=== PATIENT | female | born 1960 | race Caucasian/White ===

== ENCOUNTER 2023-12-31 17:31 | Inpatient (IN) | payer BC ==
--- OUTSIDE RECORDS SUMMARY | 2023-12-31 17:35 | XMS REPORT | Continuity of Care Document ---
Author Name Unknown Address [address] [facility] [address] [place] [address] [facility] Address [address] [facility] [address] [place] [address] Care Team Providers Care Guest Services Coordinator Name Role Phone Taz Fregoso MD Primary Care Physician Blossom Pastor Attending Clinician Unavailable Doctor Unassigned, [place] Attending Clinician U navailable WENDIE BRONSON Attending Clinician Unavailable Wendie Bronson MD Attending Clinician FAIZA SINGER Attending Clinician Unavailable LEONIDAS GARIBAY Attending Clinician Unavailable BARRINGTON CERON Attending Clinician Unavail able Barrington Ceron DO Attending Clinician [phone] Faiza Singer MD Attending Clinician [phone] WENDIE BRONSON Admitting Clinician Unavailable Payers Payer Name Policy Type Policy Number Effective Date Expirati on Date Source [facility] 6 [id number] 2017 00:00:00 [facility] Problems Condition Name Condition Details Condition Category Status Onset Date Resolution Date Last Treatment Date Treating Clinician Comments Source Morbid obesity with body mass index of 40.0-49.9 Morbid obesity with body mass index of 40.0-49.9 Disease Active 01-31 00:00: 00 [facility] [id number] Pain, joint, knee, right Problem [facility] [id number] Pain in left knee Problem [facility] Migraine Migraine, unspecifie d, not intractabl e, without status migrainosu s Problem [facility] Chronic sinusitis Chronic sinusitis, unspecifie d Problem [facility] [id number] Screening for skin cancer Problem [facility] Depression Depression Problem [facility] [id number] Plantar fasciitis, bilateral Problem [facility] [id number] History of squamous cell carcinoma of skin Problem [facility] [id number] Primary osteoarthr itis of right knee Problem [facility] [id number] Primary osteoarthr itis of left knee Problem [facility] [id number] Acquired hearing loss Problem [facility] [id number] Morbid (severe) obesity due to excess calories Problem [facility] [id number] Chronic fatigue Problem [facility] [id number] LYLE (obstructi ve sleep apnea) Problem [facility] [id number] Other chronic pain Problem [facility] [id number] Body mass index [BMI] 40.0-44.9, adult Problem [facility] [id number] Primary hypertensi on Problem [facility] [id number] Dependence on other enabling machines and devices Problem [facility] [id number] Primary insomnia Problem [facility] Allergies, Adverse Reactions, Alerts Allergy Name Allergy Type Status Severity Reaction(s) Onset Date Inactive Date Treating Clinician Comments Source Amoxicil geovanni-Pot Clavulan ate Propensi ty to adverse reaction s Active Unknown - See comments 01-29 00:00: 00 [facility] Merbromi n Propensi ty to adverse reaction s Active Unknown - See comments 01-29 00:00: 00 [facility] AMOXICIL GEOVANNI-POT CLAVULAN ATE DRUG Active Unknown-Cmnt 01-29 00:00: 00 [facility] MERBROMI N DRUG INGREDI Active Unknown-Cmnt 01-29 00:00: 00 [facility] [id number] Drug allergy Active [facility] codeine codeine Active [facility] amoxicil geovanni / clavulan ate amoxicil geovanni / clavulan ate Active hives [facility] Social History Social Habit Start Date Stop Date Quantity Comments Source Gender identity [facility] Sexual orientation [facility] Sex Assigned At [facility] History of Tobacco Use [facility] Alcohol intake 2023-05-22 00:00:00 2023-05-22 00:00:00 Current drinker of alcohol (finding) [facility] Tobacco use and exposure 2023-03-01 00:00:00 2023-03-01 00:00:00 Smokeless tobacco non-user [facility] Exposure to SARS-CoV-2 (event) 2023-02-18 00:00:00 2023-02-28 22:23:00 Not sure [facility] History of Social function 2020-10-28 00:00:00 2020-10-28 00:00:00 [facility] Alcohol Comment 2018-01-30 00:00:00 2018-01-30 00:00:00 Occasional Drinker [facility] Smoking Status Start Date Stop Date Source Never Smoker [facility] Medications Ordered Medication Name Filled Medication Name Start Date Stop Date Current Medication? Ordering Clinician Indication Dosage Frequency Signature (SIG) Comments Components Source Amitriptyli ne HCl 25 MG Amitriptyli ne HCl 25 MG 1-31 00:00: 00 No 1{table t_at_be dtime} QD Amitriptyl ine HCl 25 MG Amitriptyli ne HCl 25 MG Amitriptyli ne HCl 25 MG -31 00:00: 00 No 1{table t_at_be dtime} QD BUPivacaine HCl BUPivacaine HCl 2022-10 2 00:00: 00 No 4mL [facility] BUPivacaine HCl BUPivacaine HCl 2022-10 218 00:00: 00 No 4mL [facility] Kenalog (Triamcinol one) Kenalog (Triamcinol one) 2022-10 2- 00:00: 00 No 1mL [facility] Kenalog (Triamcinol one) Kenalog (Triamcinol one) 2022-10 2 00:00: 00 No 1mL [facility] BUPivacaine HCl BUPivacaine HCl 2022-10 00:00: 00 No 4mL [facility] BUPivacaine HCl BUPivacaine HCl 2022-10 2 00:00: 00 No 4mL [facility] Kenalog (Triamcinol one) Kenalog (Triamcinol one) 2022-10 2- 00:00: 00 No 1mL [facility] Kenalog (Triamcinol one) Kenalog (Triamcinol one) 2022-10 2 00:00: 00 No 1mL [facility] BUPivacaine HCl BUPivacaine HCl 2022-10 218 00:00: 00 No 4mL [facility] BUPivacaine HCl BUPivacaine HCl 2022-10 218 00:00: 00 No 4mL [facility] Kenalog (Triamcinol one) Kenalog (Triamcinol one) 2022-10 2-18 00:00: 00 No 1mL [facility] Kenalog (Triamcinol one) Kenalog (Triamcinol one) 2022-10 2-18 00:00: 00 No 1mL [facility] BUPivacaine HCl BUPivacaine HCl 2022-10 2-18 00:00: 00 No 4mL [facility] BUPivacaine HCl BUPivacaine HCl 2022-10 2-18 00:00: 00 No 4mL [facility] Kenalog (Triamcinol one) Kenalog (Triamcinol one) 2022-10 2-18 00:00: 00 No 1mL [facility] Kenalog (Triamcinol one) Kenalog (Triamcinol one) 2022-10 2-18 00:00: 00 No 1mL [facility] BUPivacaine HCl BUPivacaine HCl 2022-10 2-18 00:00: 00 No 4mL [facility] BUPivacaine HCl BUPivacaine HCl 2022-10 2-18 00:00: 00 No 4mL [facility] Kenalog (Triamcinol one) Kenalog (Triamcinol one) 2022-10 2-18 00:00: 00 No 1mL [facility] Kenalog (Triamcinol one) Kenalog (Triamcinol one) 2022-10 2-18 00:00: 00 No 1mL [facility] BUPivacaine HCl BUPivacaine HCl 2022-10 2-18 00:00: 00 No 4mL [facility] BUPivacaine HCl BUPivacaine HCl 2022-10 2-18 00:00: 00 No 4mL [facility] Kenalog (Triamcinol one) Kenalog (Triamcinol one) 2022-10 2-18 00:00: 00 No 1mL [facility] Kenalog (Triamcinol one) Kenalog (Triamcinol one) 2022-10 2-18 00:00: 00 No 1mL [facility] Escitalopra m Oxalate 5 MG Escitalopra m Oxalate 5 MG 2022-10 2-05 00:00: 00 No 1{table t} QD Escitalopr am Oxalate 5 MG Escitalopra m Oxalate 5 MG Escitalopra m Oxalate 5 MG 2022-10 2-05 00:00: 00 No 1{table t} QD Escitalopr am Oxalate 5 MG Escitalopra m Oxalate 5 MG Escitalopra m Oxalate 5 MG 2022-10 2-05 00:00: 00 No 1{table t} QD Escitalopr am Oxalate 5 MG Escitalopra m Oxalate 5 MG Escitalopra m Oxalate 5 MG 3-1 2-05 00:00: 00 No 1{table t} QD Escitalopr am Oxalate 5 MG Ozempic (1 MG/DOSE) 4 MG/3ML Ozempic (1 MG/DOSE) 4 MG/3ML 2023-0 -24 00:00: 00 No Ozempic (1 MG/DOSE) 4 MG/3ML Ozempic (0.25 or 0.5 MG/DOSE) 2 MG/3ML Ozempic (0.25 or 0.5 MG/DOSE) 2 MG/3ML 2023-0 24 00:00: 00 No Ozempic (0.25 or 0.5 MG/DOSE) 2 MG/3ML Ozempic (1 MG/DOSE) 4 MG/3ML Ozempic (1 MG/DOSE) 4 MG/3ML 2023-0 24 00:00: 00 No Ozempic (1 MG/DOSE) 4 MG/3ML Ozempic (0.25 or 0.5 MG/DOSE) 2 MG/3ML Ozempic (0.25 or 0.5 MG/DOSE) 2 MG/3ML 3-0 24 00:00: 00 No Ozempic (0.25 or 0.5 MG/DOSE) 2 MG/3ML Ozempic (1 MG/DOSE) 4 MG/3ML Ozempic (1 MG/DOSE) 4 MG/3ML 3-0 24 00:00: 00 No Ozempic (1 MG/DOSE) 4 MG/3ML Ozempic (0.25 or 0.5 MG/DOSE) 2 MG/3ML Ozempic (0.25 or 0.5 MG/DOSE) 2 MG/3ML 3-0 -24 00:00: 00 No Ozempic (0.25 or 0.5 MG/DOSE) 2 MG/3ML Ozempic (1 MG/DOSE) 4 MG/3ML Ozempic (1 MG/DOSE) 4 MG/3ML 2023-0 -24 00:00: 00 No Ozempic (1 MG/DOSE) 4 MG/3ML Ozempic (0.25 or 0.5 MG/DOSE) 2 MG/3ML Ozempic (0.25 or 0.5 MG/DOSE) 2 MG/3ML 2023-0 5-24 00:00: 00 No Ozempic (0.25 or 0.5 MG/DOSE) 2 MG/3ML Ozempic (1 MG/DOSE) 4 MG/3ML Ozempic (1 MG/DOSE) 4 MG/3ML 2023-0 5-24 00:00: 00 No Ozempic (1 MG/DOSE) 4 MG/3ML Ozempic (0.25 or 0.5 MG/DOSE) 2 MG/3ML Ozempic (0.25 or 0.5 MG/DOSE) 2 MG/3ML 2023-0 -24 00:00: 00 No Ozempic (0.25 or 0.5 MG/DOSE) 2 MG/3ML Ozempic (1 MG/DOSE) 4 MG/3ML Ozempic (1 MG/DOSE) 4 MG/3ML 2023-0 -24 00:00: 00 No Ozempic (1 MG/DOSE) 4 MG/3ML Ozempic (0.25 or 0.5 MG/DOSE) 2 MG/3ML Ozempic (0.25 or 0.5 MG/DOSE) 2 MG/3ML 2023-0 -24 00:00: 00 No Ozempic (0.25 or 0.5 MG/DOSE) 2 MG/3ML Ozempic (0.25 or 0.5 MG/DOSE) 2 MG/3ML Ozempic (0.25 or 0.5 MG/DOSE) 2 MG/3ML 2023-0 24 00:00: 00 No Ozempic (0.25 or 0.5 MG/DOSE) 2 MG/3ML Ozempic (1 MG/DOSE) 4 MG/3ML Ozempic (1 MG/DOSE) 4 MG/3ML 2023-0 -24 00:00: 00 No Ozempic (1 MG/DOSE) 4 MG/3ML Ozempic (0.25 or 0.5 MG/DOSE) 2 MG/3ML Ozempic (0.25 or 0.5 MG/DOSE) 2 MG/3ML 2023-0 5-24 00:00: 00 No Ozempic (0.25 or 0.5 MG/DOSE) 2 MG/3ML Ozempic (1 MG/DOSE) 4 MG/3ML Ozempic (1 MG/DOSE) 4 MG/3ML 2023-0 -24 00:00: 00 No Ozempic (1 MG/DOSE) 4 MG/3ML Ozempic (0.25 or 0.5 MG/DOSE) 2 MG/3ML Ozempic (0.25 or 0.5 MG/DOSE) 2 MG/3ML 2023-0 24 00:00: 00 No Ozempic (0.25 or 0.5 MG/DOSE) 2 MG/3ML Ozempic (1 MG/DOSE) 4 MG/3ML Ozempic (1 MG/DOSE) 4 MG/3ML 2023-0 24 00:00: 00 No Ozempic (1 MG/DOSE) 4 MG/3ML Ozempic (0.25 or 0.5 MG/DOSE) 2 MG/3ML Ozempic (0.25 or 0.5 MG/DOSE) 2 MG/3ML 2023-0 24 00:00: 00 No Ozempic (0.25 or 0.5 MG/DOSE) 2 MG/3ML Ozempic (1 MG/DOSE) 4 MG/3ML Ozempic (1 MG/DOSE) 4 MG/3ML 2023-0 24 00:00: 00 No Ozempic (1 MG/DOSE) 4 MG/3ML Ozempic (1 MG/DOSE) 4 MG/3ML Ozempic (1 MG/DOSE) 4 MG/3ML 2023-0 24 00:00: 00 No Ozempic (1 MG/DOSE) 4 MG/3ML Ozempic (0.25 or 0.5 MG/DOSE) 2 MG/3ML Ozempic (0.25 or 0.5 MG/DOSE) 2 MG/3ML 2023-0 24 00:00: 00 No Ozempic (0.25 or 0.5 MG/DOSE) 2 MG/3ML Ozempic (1 MG/DOSE) 4 MG/3ML Ozempic (1 MG/DOSE) 4 MG/3ML 2023-0 24 00:00: 00 No Ozempic (1 MG/DOSE) 4 MG/3ML Ozempic (0.25 or 0.5 MG/DOSE) 2 MG/3ML Ozempic (0.25 or 0.5 MG/DOSE) 2 MG/3ML 0 03-22 00:00: 00 No Ozempic (0.25 or 0.5 MG/DOSE) 2 MG/3ML Ozempic (1 MG/DOSE) 4 MG/3ML Ozempic (1 MG/DOSE) 4 MG/3ML 0 03-22 00:00: 00 No Ozempic (1 MG/DOSE) 4 MG/3ML Ozempic (0.25 or 0.5 MG/DOSE) 2 MG/3ML Ozempic (0.25 or 0.5 MG/DOSE) 2 MG/3ML 0 03-22 00:00: 00 No Ozempic (0.25 or 0.5 MG/DOSE) 2 MG/3ML Kenalog (Triamcinol one) Kenalog (Triamcinol one) 0 03-21 00:00: 00 No 1mL [facility] Kenalog (Triamcinol one) Kenalog (Triamcinol one) 0 03-21 00:00: 00 No 1mL [facility] Bupivicaine Arena Bupivicaine Arena 0 03-21 00:00: 00 No 4mL [facility] Bupivicaine Arena Bupivicaine Arena 0 03-21 00:00: 00 No 4mL [facility] Kenalog (Triamcinol one) Kenalog (Triamcinol one) 0 03-21 00:00: 00 No 1mL [facility] Kenalog (Triamcinol one) Kenalog (Triamcinol one) 0 03-21 00:00: 00 No 1mL [facility] Bupivicaine Arena Bupivicaine Arena 0 03-21 00:00: 00 No 4mL [facility] Bupivicaine Arena Bupivicaine Arena 2022-0 03-21 00:00: 00 No 4mL [facility] Kenalog (Triamcinol one) Kenalog (Triamcinol one) 03-21 00:00: 00 No 1mL [facility] Kenalog (Triamcinol one) Kenalog (Triamcinol one) 03-21 00:00: 00 No 1mL [facility] Bupivicaine Arena Bupivicaine Arena 03-21 00:00: 00 No 4mL [facility] Bupivicaine Arena Bupivicaine Arena 03-21 00:00: 00 No 4mL [facility] Kenalog (Triamcinol one) Kenalog (Triamcinol one) 03-21 00:00: 00 No 1mL [facility] Kenalog (Triamcinol one) Kenalog (Triamcinol one) 03-21 00:00: 00 No 1mL [facility] Bupivicaine Arena Bupivicaine Arena 03-21 00:00: 00 No 4mL [facility] Bupivicaine Arena Bupivicaine Arena 03-21 00:00: 00 No 4mL [facility] Kenalog (Triamcinol one) Kenalog (Triamcinol one) 03-21 00:00: 00 No 1mL [facility] Kenalog (Triamcinol one) Kenalog (Triamcinol one) 03-21 00:00: 00 No 1mL [facility] Bupivicaine Arena Bupivicaine Arena 03-21 00:00: 00 No 4mL [facility] Bupivicaine Arena Bupivicaine Arena 0 03-21 00:00: 00 No 4mL [facility] Kenalog (Triamcinol one) Kenalog (Triamcinol one) 03-21 00:00: 00 No 1mL [facility] Kenalog (Triamcinol one) Kenalog (Triamcinol one) 03-21 00:00: 00 No 1mL [facility] Bupivicaine Arena Bupivicaine Arena 03-21 00:00: 00 No 4mL [facility] Bupivicaine Arena Bupivicaine Arena 0 03-21 00:00: 00 No 4mL [facility] Bupivicaine Arena Bupivicaine Arena 03-21 00:00: 00 No 4mL [facility] Kenalog (Triamcinol one) Kenalog (Triamcinol one) 03-21 00:00: 00 No 1mL [facility] Kenalog (Triamcinol one) Kenalog (Triamcinol one) 03-21 00:00: 00 No 1mL [facility] Bupivicaine Arena Bupivicaine Arena 03-21 00:00: 00 No 4mL [facility] Bupivicaine Arena Bupivicaine Arena 03-21 00:00: 00 No 4mL [facility] Kenalog (Triamcinol one) Kenalog (Triamcinol one) 03-21 00:00: 00 No 1mL [facility] Kenalog (Triamcinol one) Kenalog (Triamcinol one) 03-21 00:00: 00 No 1mL [facility] Bupivicaine Arena Bupivicaine Arena 03-21 00:00: 00 No 4mL [facility] Bupivicaine Arena Bupivicaine Arena 03-21 00:00: 00 No 4mL [facility] Kenalog (Triamcinol one) Kenalog (Triamcinol one) 0 03-21 00:00: 00 No 1mL [facility] Kenalog (Triamcinol one) Kenalog (Triamcinol one) 03-21 00:00: 00 No 1mL [facility] Bupivicaine Arena Bupivicaine Arena 03-21 00:00: 00 No 4mL [facility] Bupivicaine Arena Bupivicaine Arena 03-21 00:00: 00 No 4mL [facility] Kenalog (Triamcinol one) Kenalog (Triamcinol one) 03-21 00:00: 00 No 1mL [facility] Kenalog (Triamcinol one) Kenalog (Triamcinol one) 03-21 00:00: 00 No 1mL [facility] Bupivicaine Arena Bupivicaine Arena 03-21 00:00: 00 No 4mL [facility] Bupivicaine Arena Bupivicaine Arena 03-21 00:00: 00 No 4mL [facility] Kenalog (Triamcinol one) Kenalog (Triamcinol one) 03-21 00:00: 00 No 1mL [facility] Kenalog (Triamcinol one) Kenalog (Triamcinol one) 03-21 00:00: 00 No 1mL [facility] Kenalog (Triamcinol one) Kenalog (Triamcinol one) 03-21 00:00: 00 No 1mL [facility] Bupivicaine Arena Bupivicaine Arena 0 03-21 00:00: 00 No 4mL [facility] Kenalog (Triamcinol one) Kenalog (Triamcinol one) 03-21 00:00: 00 No 1mL [facility] Bupivicaine Arena Bupivicaine Arena 03-21 00:00: 00 No 4mL [facility] Kenalog (Triamcinol one) Kenalog (Triamcinol one) 03-21 00:00: 00 No 1mL [facility] Kenalog (Triamcinol one) Kenalog (Triamcinol one) 03-21 00:00: 00 No 1mL [facility] Bupivicaine Arena Bupivicaine Arena 03-21 00:00: 00 No 4mL [facility] Bupivicaine Arena Bupivicaine Arena 03-21 00:00: 00 No 4mL [facility] Bupivicaine Arena Bupivicaine Arena 03-21 00:00: 00 No 4mL [facility] Kenalog (Triamcinol one) Kenalog (Triamcinol one) 03-21 00:00: 00 No 1mL [facility] Kenalog (Triamcinol one) Kenalog (Triamcinol one) 03-21 00:00: 00 No 1mL [facility] Bupivicaine Arena Bupivicaine Arena 03-21 00:00: 00 No 4mL [facility] Bupivicaine Arena Bupivicaine Arena 03-21 00:00: 00 No 4mL [facility] Kenalog (Triamcinol one) Kenalog (Triamcinol one) 03-21 00:00: 00 No 1mL [facility] Kenalog (Triamcinol one) Kenalog (Triamcinol one) 03-21 00:00: 00 No 1mL [facility] Bupivicaine Arena Bupivicaine Arena 03-21 00:00: 00 No 4mL [facility] Bupivicaine Arena Bupivicaine Arena 03-21 00:00: 00 No 4mL [facility] escitalopra m oxalate (LEXAPRO) 10 mg tablet 03-01 15:13: 03-01 00:00 :00 No 10mg Take 10 mg by mouth daily. [facility] escitalopra m oxalate (LEXAPRO) 10 mg tablet 03-01 15:03-01 00:00 :00 No 10mg Take 10 mg by mouth daily. [facility] estradioL (ESTRACE) 0.01 % (0.1 mg/gram) vaginal cream 03-01 00:00: 00 Yes [id number] 1g Insert 1 g into vagina in the morning. Used daily, at night for 2 weeks and then 3 times a week // [facility] estradioL (ESTRACE) 0.01 % (0.1 mg/gram) vaginal cream 03-01 00:00: 00 Yes [id number] 1g Insert 1 g into vagina in the morning. Used daily, at night for 2 weeks and then 3 times a week // [facility] estradioL (ESTRACE) 0.01 % (0.1 mg/gram) vaginal cream 03-01 00:00: 00 Yes [id number] 1g Insert 1 g into vagina in the morning. Used daily, at night for 2 weeks and then 3 times a week // [facility] estradioL (ESTRACE) 0.01 % (0.1 mg/gram) vaginal cream 03-01 00:00: 00 Yes [id number] 1g Insert 1 g into vagina in the morning. Used daily, at night for 2 weeks and then 3 times a week // [facility] estradioL (ESTRACE) 0.01 % (0.1 mg/gram) vaginal cream 03-01 00:00: 00 Yes [id number] 1g Insert 1 g into vagina in the morning. Used daily, at night for 2 weeks and then 3 times a week // [facility] Bupivicaine Arena Bupivicaine Arena 05-23 00:00: 00 No 2.5mg [facility] Bupivicaine Arena Bupivicaine Arena 05-23 00:00: 00 No 2.5mg [facility] Kenalog (Triamcinol one) Kenalog (Triamcinol one) 05-23 00:00: 00 No 40mg [facility] Kenalog (Triamcinol one) Kenalog (Triamcinol one) 0 05-23 00:00: 00 No 40mg [facility] Bupivicaine Arena Bupivicaine Arena 0 05-23 00:00: 00 No 2.5mg [facility] Bupivicaine Arena Bupivicaine Arena 0 05-23 00:00: 00 No 2.5mg [facility] Kenalog (Triamcinol one) Kenalog (Triamcinol one) 05-23 00:00: 00 No 40mg [facility] Kenalog (Triamcinol one) Kenalog (Triamcinol one) 05-23 00:00: 00 No 40mg [facility] Bupivicaine Arena Bupivicaine Arena 0 05-23 00:00: 00 No 2.5mg [facility] Bupivicaine Arena Bupivicaine Arena 0 05-23 00:00: 00 No 2.5mg [facility] Kenalog (Triamcinol one) Kenalog (Triamcinol one) 05-23 00:00: 00 No 40mg [facility] Kenalog (Triamcinol one) Kenalog (Triamcinol one) 0 05-23 00:00: 00 No 40mg [facility] Bupivicaine Arena Bupivicaine Arena 0 05-23 00:00: 00 No 2.5mg [facility] Bupivicaine Arena Bupivicaine Arena 2021-0 05-23 00:00: 00 No 2.5mg [facility] Kenalog (Triamcinol one) Kenalog (Triamcinol one) 05-23 00:00: 00 No 40mg [facility] Kenalog (Triamcinol one) Kenalog (Triamcinol one) 05-23 00:00: 00 No 40mg [facility] Bupivicaine Arena Bupivicaine Arena 05-23 00:00: 00 No 2.5mg [facility] Bupivicaine Arena Bupivicaine Arena 05-23 00:00: 00 No 2.5mg [facility] Kenalog (Triamcinol one) Kenalog (Triamcinol one) 05-23 00:00: 00 No 40mg [facility] Kenalog (Triamcinol one) Kenalog (Triamcinol one) 05-23 00:00: 00 No 40mg [facility] Bupivicaine Arena Bupivicaine Arena 05-23 00:00: 00 No 2.5mg [facility] Bupivicaine Arena Bupivicaine Arena 05-23 00:00: 00 No 2.5mg [facility] Kenalog (Triamcinol one) Kenalog (Triamcinol one) 05-23 00:00: 00 No 40mg [facility] Kenalog (Triamcinol one) Kenalog (Triamcinol one) 05-23 00:00: 00 No 40mg [facility] Bupivicaine Arena Bupivicaine Arena 05-23 00:00: 00 No 2.5mg [facility] Bupivicaine Arena Bupivicaine Arena 05-23 00:00: 00 No 2.5mg [facility] Kenalog (Triamcinol one) Kenalog (Triamcinol one) 05-23 00:00: 00 No 40mg [facility] Kenalog (Triamcinol one) Kenalog (Triamcinol one) 05-23 00:00: 00 No 40mg [facility] Bupivicaine Arena Bupivicaine Arena 05-23 00:00: 00 No 2.5mg [facility] Bupivicaine Arena Bupivicaine Arena 05-23 00:00: 00 No 2.5mg [facility] Kenalog (Triamcinol one) Kenalog (Triamcinol one) 05-23 00:00: 00 No 40mg [facility] Kenalog (Triamcinol one) Kenalog (Triamcinol one) 05-23 00:00: 00 No 40mg [facility] Bupivicaine Arena Bupivicaine Arena 05-23 00:00: 00 No 2.5mg [facility] Bupivicaine Arena Bupivicaine Arena 05-23 00:00: 00 No 2.5mg [facility] Kenalog (Triamcinol one) Kenalog (Triamcinol one) 05-23 00:00: 00 No 40mg [facility] Kenalog (Triamcinol one) Kenalog (Triamcinol one) 05-23 00:00: 00 No 40mg [facility] Bupivicaine Arena Bupivicaine Arena 05-23 00:00: 00 No 2.5mg [facility] Bupivicaine Arena Bupivicaine Arena 05-23 00:00: 00 No 2.5mg [facility] Kenalog (Triamcinol one) Kenalog (Triamcinol one) 05-23 00:00: 00 No 40mg [facility] Kenalog (Triamcinol one) Kenalog (Triamcinol one) 05-23 00:00: 00 No 40mg [facility] Bupivicaine Arena Bupivicaine Arena 0 05-23 00:00: 00 No 2.5mg [facility] Bupivicaine Arena Bupivicaine Arena 05-23 00:00: 00 No 2.5mg [facility] Kenalog (Triamcinol one) Kenalog (Triamcinol one) 05-23 00:00: 00 No 40mg [facility] Kenalog (Triamcinol one) Kenalog (Triamcinol one) 05-23 00:00: 00 No 40mg [facility] Bupivicaine Arena Bupivicaine Arena 05-23 00:00: 00 No 2.5mg [facility] Bupivicaine Arena Bupivicaine Arena 05-23 00:00: 00 No 2.5mg [facility] Bupivicaine Arena Bupivicaine Arena 05-23 00:00: 00 No 2.5mg [facility] Bupivicaine Arena Bupivicaine Arena 05-23 00:00: 00 No 2.5mg [facility] Kenalog (Triamcinol one) Kenalog (Triamcinol one) 05-23 00:00: 00 No 40mg [facility] Kenalog (Triamcinol one) Kenalog (Triamcinol one) 05-23 00:00: 00 No 40mg [facility] Kenalog (Triamcinol one) Kenalog (Triamcinol one) 05-23 00:00: 00 No 40mg [facility] Kenalog (Triamcinol one) Kenalog (Triamcinol one) 0 05-23 00:00: 00 No 40mg [facility] Bupivicaine Arena Bupivicaine Arena 05-23 00:00: 00 No 2.5mg [facility] Bupivicaine Arena Bupivicaine Arena 05-23 00:00: 00 No 2.5mg [facility] Kenalog (Triamcinol one) Kenalog (Triamcinol one) 05-23 00:00: 00 No 40mg [facility] Kenalog (Triamcinol one) Kenalog (Triamcinol one) 05-23 00:00: 00 No 40mg [facility] Bupivicaine Arena Bupivicaine Arena 05-23 00:00: 00 No 2.5mg [facility] Bupivicaine Arena Bupivicaine Arena 05-23 00:00: 00 No 2.5mg [facility] Kenalog (Triamcinol one) Kenalog (Triamcinol one) 05-23 00:00: 00 No 40mg [facility] Kenalog (Triamcinol one) Kenalog (Triamcinol one) 05-23 00:00: 00 No 40mg [facility] CALCIUM ORAL 2019-10 20:00: 34 Yes Take by mouth. [facility] MAGNESIUM ORAL 2019-10 20:00: 34 Yes Take by mouth. [facility] amitriptyli ne-chlordia zepoxide 12.5-5 mg per tablet 2019-10 20:00: 34 Yes 1{tbl} Take 1 tablet by mouth 2 (two) times daily. [facility] CALCIUM ORAL 2019-10 20:00: 34 Yes Take by mouth. [facility] MAGNESIUM ORAL 2019-10 20:00: 34 Yes Take by mouth. [facility] amitriptyli ne-chlordia zepoxide 12.5-5 mg per tablet 2019-10 20:00: 34 Yes 1{tbl} Take 1 tablet by mouth 2 (two) times daily. [facility] CALCIUM ORAL 2019-10 20:00: 34 Yes Take by mouth. [facility] MAGNESIUM ORAL 2019-10 20:00: 34 Yes Take by mouth. [facility] amitriptyli ne-chlordia zepoxide 12.5-5 mg per tablet 2019-10 20:00: 34 Yes 1{tbl} Take 1 tablet by mouth 2 (two) times daily. [facility] ZOLMitripta n 5 mg disintegrat ing tablet 2019-10 19:58: 51 Yes 5mg Take 5 mg by mouth as needed for Migraine. [facility] escitalopra m oxalate (LEXAPRO) 10 mg tablet 2019-10 19:58: 51 Yes 10mg Take 10 mg by mouth daily. [facility] ZOLMitripta n (ZOMIG) 5 mg nasal solution 2019-10 19:58: 51 Yes Use in each nostril as needed for Migraine. [facility] ZOLMitripta n 5 mg disintegrat ing tablet 2019-10 19:58: 51 Yes 5mg Take 5 mg by mouth as needed for Migraine. [facility] escitalopra m oxalate (LEXAPRO) 10 mg tablet 2019-10 19:58: 51 Yes 10mg Take 10 mg by mouth daily. [facility] ZOLMitripta n (ZOMIG) 5 mg nasal solution 2019-10 19:58: 51 Yes Use in each nostril as needed for Migraine. [facility] ZOLMitripta n 5 mg disintegrat ing tablet 2019-10 19:58: 51 Yes 5mg Take 5 mg by mouth as needed for Migraine. [facility] escitalopra m oxalate (LEXAPRO) 10 mg tablet 2019-10 19:58: 51 Yes 10mg Take 10 mg by mouth daily. [facility] ZOLMitripta n (ZOMIG) 5 mg nasal solution 2019-10 19:58: 51 Yes Use in each nostril as needed for Migraine. [facility] CALCIUM ORAL 2019-10 14:00: 34 Yes Take by mouth. [facility] MAGNESIUM ORAL 2019-10 14:00: 34 Yes Take by mouth. [facility] amitriptyli ne-chlordia zepoxide 12.5-5 mg per tablet 2019-10 14:00: 34 Yes 1{tbl} Take 1 tablet by mouth 2 (two) times daily. [facility] CALCIUM ORAL 2019-10 14:00: 34 Yes Take by mouth. [facility] MAGNESIUM ORAL 2019-10 14:00: 34 Yes Take by mouth. [facility] amitriptyli ne-chlordia zepoxide 12.5-5 mg per tablet 2019-10 14:00: 34 Yes 1{tbl} Take 1 tablet by mouth 2 (two) times daily. [facility] CALCIUM ORAL 2019-10 14:00: 34 Yes Take by mouth. [facility] MAGNESIUM ORAL 2019-10 14:00: 34 Yes Take by mouth. [facility] amitriptyli ne-chlordia zepoxide 12.5-5 mg per tablet 2019-10 14:00: 34 Yes 1{tbl} Take 1 tablet by mouth 2 (two) times daily. [facility] CALCIUM ORAL 2019-10 14:00: 34 Yes Take by mouth. [facility] MAGNESIUM ORAL 2019-10 14:00: 34 Yes Take by mouth. [facility] amitriptyli ne-chlordia zepoxide 12.5-5 mg per tablet 2019-10 14:00: 34 Yes 1{tbl} Take 1 tablet by mouth 2 (two) times daily. [facility] CALCIUM ORAL 2019-10 14:00: 34 Yes Take by mouth. [facility] MAGNESIUM ORAL 2019-10 14:00: 34 Yes Take by mouth. [facility] amitriptyli ne-chlordia zepoxide 12.5-5 mg per tablet 2019-10 14:00: 34 Yes 1{tbl} Take 1 tablet by mouth 2 (two) times daily. [facility] ZOL[facility] (ZOMIG) 5 mg nasal solution 2019-10 13:58: 51 Yes Use in each nostril as needed for Migraine. [facility] ZOLMitripta n 5 mg disintegrat ing tablet 2019-10 13:58: 51 Yes 5mg Take 5 mg by mouth as needed for Migraine. [facility] ZOLMitripta n (ZOMIG) 5 mg nasal solution 2019-10 13:58: 51 Yes Use in each nostril as needed for Migraine. [facility] ZOLMitripta n 5 mg disintegrat ing tablet 2019-10 13:58: 51 Yes 5mg Take 5 mg by mouth as needed for Migraine. [facility] ZOLMitripta n (ZOMIG) 5 mg nasal solution 2019-10 13:58: 51 Yes Use in each nostril as needed for Migraine. [facility] ZOLMitripta n 5 mg disintegrat ing tablet 2019-10 13:58: 51 Yes 5mg Take 5 mg by mouth as needed for Migraine. [facility] ZOLMitripta n (ZOMIG) 5 mg nasal solution 2019-10 13:58: 51 Yes Use in each nostril as needed for Migraine. [facility] ZOLMitripta n 5 mg disintegrat ing tablet 2019-10 13:58: 51 Yes 5mg Take 5 mg by mouth as needed for Migraine. [facility] ZOLMitripta n (ZOMIG) 5 mg nasal solution 2019-10 13:58: 51 Yes Use in each nostril as needed for Migraine. [facility] ZOLMitripta n 5 mg disintegrat ing tablet 2019-10 13:58: 51 Yes 5mg Take 5 mg by mouth as needed for Migraine. [facility] TRINTELLIX 5 mg Tab 2019-10 00:00: 00 Yes TK 1 T PO QD [facility] TRINTELLIX 5 mg Tab 2019-10 00:00: 00 Yes TK 1 T PO QD [facility] TRINTELLIX 5 mg Tab 2019-10 00:00: 00 Yes TK 1 T PO QD [facility] TRINTELLIX 5 mg Tab 2019-10 00:00: 00 Yes TK 1 T PO QD [facility] TRINTELLIX 5 mg Tab 2019-10 00:00: 00 Yes TK 1 T PO QD [facility] TRINTELLIX 5 mg Tab 2019-10 00:00: 00 Yes TK 1 T PO QD [facility] TRINTELLIX 5 mg Tab 2019-10 00:00: 00 Yes TK 1 T PO QD [facility] TRINTELLIX 5 mg Tab 2019-10 00:00: 00 Yes TK 1 T PO QD [facility] FLUCELVAX QUAD , PF, 60 mcg (15 mcg x 4)/0.5 mL Syrg 2020- 0 00:00: 00 Yes ADM 0.5ML IM UTD [facility] FLUCELVAX QUAD , PF, 60 mcg (15 mcg x 4)/0.5 mL Syrg 2019- 0 00:00: 00 Yes ADM 0.5ML IM UTD [facility] FLUCELVAX QUAD , PF, 60 mcg (15 mcg x 4)/0.5 mL Syrg 2019-10 0 00:00: 00 Yes ADM 0.5ML IM UTD [facility] FLUCELVAX QUAD , PF, 60 mcg (15 mcg x 4)/0.5 mL Syrg 2020- 0 00:00: 00 Yes ADM 0.5ML IM UTD [facility] FLUCELVAX QUAD , PF, 60 mcg (15 mcg x 4)/0.5 mL Syrg 2020-1 0 00:00: 00 Yes ADM 0.5ML IM UTD [facility] FLUCELVAX QUAD , PF, 60 mcg (15 mcg x 4)/0.5 mL Syrg 2019-10 00:00: 00 Yes ADM 0.5ML IM UTD [facility] FLUCELVAX QUAD , PF, 60 mcg (15 mcg x 4)/0.5 mL Syrg 2019-10 00:00: 00 Yes ADM 0.5ML IM UTD [facility] FLUCELVAX QUAD , PF, 60 mcg (15 mcg x 4)/0.5 mL Syrg 2019-10 00:00: 00 Yes ADM 0.5ML IM [facility] chlorthalid one 25 mg tablet 2019-10 00:00: 00 Yes TK 1 T PO QD IN THE MORNING [facility] chlorthalid one 25 mg tablet 2019-10 00:00: 00 Yes TK 1 T PO QD IN THE MORNING [facility] chlorthalid one 25 mg tablet 2019-10 00:00: 00 Yes TK 1 T PO QD IN THE MORNING [facility] chlorthalid one 25 mg tablet 2019-10 00:00: 00 Yes TK 1 T PO QD IN THE MORNING [facility] chlorthalid one 25 mg tablet 2019-10 00:00: 00 Yes TK 1 T PO QD IN THE MORNING [facility] chlorthalid one 25 mg tablet 2019-10 00:00: 00 Yes TK 1 T PO QD IN THE MORNING [facility] chlorthalid one 25 mg tablet 2019-10 00:00: 00 Yes TK 1 T PO QD IN THE MORNING [facility] chlorthalid one 25 mg tablet 2019-10 00:00: 00 Yes TK 1 T PO QD IN THE MORNING [facility] escitalopra m oxalate (LEXAPRO) 10 mg tablet 02-27 17:09: 26 Yes 10mg Take 10 mg by mouth daily. [facility] ZOLMitripta n (ZOMIG) 5 mg nasal solution 02-27 17:09: 26 Yes Use in each nostril as needed for Migraine. [facility] ZOLMitripta n 5 mg disintegrat ing tablet 02-27 17:09: 26 Yes 5mg Take 5 mg by mouth as needed for Migraine. [facility] Amitriptyli ne HCl 50 MG Amitriptyli ne HCl 50 MG No QD Amitriptyl ine HCl 50 MG Zomig Zomig No Zomig Trintellix 10 MG Trintellix 10 MG No Trintellix 10 MG Chlorthalid one 25 MG Chlorthalid one 25 MG No Chlorthali done 25 MG Amitriptyli ne HCl 50 MG Amitriptyli ne HCl 50 MG No QD Amitriptyl ine HCl 50 MG Zomig Zomig No Zomig Trintellix 10 MG Trintellix 10 MG No Trintellix 10 MG Chlorthalid one 25 MG Chlorthalid one 25 MG No Chlorthali done 25 MG Amitriptyli ne HCl 50 MG Amitriptyli ne HCl 50 MG No QD Amitriptyl ine HCl 50 MG Zomig Zomig No Zomig Trintellix 10 MG Trintellix 10 MG No Trintellix 10 MG Chlorthalid one 25 MG Chlorthalid one 25 MG No Chlorthali done 25 MG Amitriptyli ne HCl 50 MG Amitriptyli ne HCl 50 MG No QD Amitriptyl ine HCl 50 MG Zomig Zomig No Zomig Trintellix 10 MG Trintellix 10 MG No Trintellix 10 MG Chlorthalid one 25 MG Chlorthalid one 25 MG No Chlorthali done 25 MG Amitriptyli ne HCl 50 MG Amitriptyli ne HCl 50 MG No QD Amitriptyl ine HCl 50 MG Zomig Zomig No Zomig Trintellix 10 MG Trintellix 10 MG No Trintellix 10 MG Chlorthalid one 25 MG Chlorthalid one 25 MG No Chlorthali done 25 MG Amitriptyli ne HCl 50 MG Amitriptyli ne HCl 50 MG No QD Amitriptyl ine HCl 50 MG Zomig Zomig No Zomig Trintellix 10 MG Trintellix 10 MG No Trintellix 10 MG Chlorthalid one 25 MG Chlorthalid one 25 MG No Chlorthali done 25 MG Amitriptyli ne HCl 50 MG Amitriptyli ne HCl 50 MG No QD Amitriptyl ine HCl 50 MG Trintellix 10 MG Trintellix 10 MG No Trintellix 10 MG Zomig Zomig No Zomig Chlorthalid one 25 MG Chlorthalid one 25 MG No Chlorthali done 25 MG Amitriptyli ne HCl 50 MG Amitriptyli ne HCl 50 MG No QD Amitriptyl ine HCl 50 MG Trintellix 10 MG Trintellix 10 MG No Trintellix 10 MG Zomig Zomig No Zomig Chlorthalid one 25 MG Chlorthalid one 25 MG No Chlorthali done 25 MG Amitriptyli ne HCl 50 MG Amitriptyli ne HCl 50 MG No QD Amitriptyl ine HCl 50 MG Trintellix 10 MG Trintellix 10 MG No Trintellix 10 MG Zomig Zomig No Zomig Chlorthalid one 25 MG Chlorthalid one 25 MG No Chlorthali done 25 MG Amitriptyli ne HCl 50 MG Amitriptyli ne HCl 50 MG No QD Amitriptyl ine HCl 50 MG Amitriptyli ne HCl 50 MG Amitriptyli ne HCl 50 MG No QD Amitriptyl ine HCl 50 MG Trintellix 10 MG Trintellix 10 MG No Trintellix 10 MG Zomig Zomig No Zomig Chlorthalid one 25 MG Chlorthalid one 25 MG No Chlorthali done 25 MG Zomig Zomig No Zomig Trintellix 10 MG Trintellix 10 MG No Trintellix 10 MG Zomig Zomig No Zomig Chlorthalid one 25 MG Chlorthalid one 25 MG No Chlorthali done 25 MG Escitalopra m Oxalate 5 MG Escitalopra m Oxalate 5 MG No 1{table t} QD Escitalopr am Oxalate 5 MG Chlorthalid one 25 MG Chlorthalid one 25 MG No Chlorthali done 25 MG Amitriptyli ne HCl 50 MG Amitriptyli ne HCl 50 MG No QD Amitriptyl ine HCl 50 MG Zomig Zomig No Escitalopra m Oxalate 5 MG Escitalopra m Oxalate 5 MG No 1{table t} QD Chlorthalid one 25 MG Chlorthalid one 25 MG No Amitriptyli ne HCl 50 MG Amitriptyli ne HCl 50 MG No QD Amitriptyli ne HCl 50 MG Amitriptyli ne HCl 50 MG No QD Amitriptyl ine HCl 50 MG Zomig Zomig No Zomig Trintellix 10 MG Trintellix 10 MG No Trintellix 10 MG Chlorthalid one 25 MG Chlorthalid one 25 MG No Chlorthali done 25 MG Amitriptyli ne HCl 50 MG Amitriptyli ne HCl 50 MG No QD Amitriptyl ine HCl 50 MG Zomig Zomig No Zomig Trintellix 10 MG Trintellix 10 MG No Trintellix 10 MG Chlorthalid one 25 MG Chlorthalid one 25 MG No Chlorthali done 25 MG Immunizations Ordered Immunization Name Filled Immunization Name Date Status Comments Source SARS-COV-2 COVID-19 PFIZER VACCINE 2020-12-13 00:00:00 Completed [facility] SARS-COV-2 COVID-19 PFIZER VACCINE 2020-12-13 00:00:00 Completed [facility] SARS-COV-2 COVID-19 PFIZER VACCINE 2020-12-13 00:00:00 Completed [facility] SARS-COV-2 COVID-19 PFIZER VACCINE 2020-12-13 00:00:00 Completed [facility] SARS-COV-2 COVID-19 PFIZER VACCINE 2020-11-22 00:00:00 Completed [facility] SARS-COV-2 COVID-19 PFIZER VACCINE 2020-11-22 00:00:00 Completed [facility] SARS-COV-2 COVID-19 PFIZER VACCINE 2020-11-22 00:00:00 Completed [facility] SARS-COV-2 COVID-19 PFIZER VACCINE 2020-11-22 00:00:00 Completed [facility] Influenza Virus Vaccine 2020-09-28 00:00:00 Completed [facility] Influenza Virus Vaccine 2020-09-28 00:00:00 Completed [facility] Influenza Virus Vaccine 2020-09-28 00:00:00 Completed [facility] Influenza Virus Vaccine 2020-09-28 00:00:00 Completed [facility] Influenza Virus Vaccine 2020-09-28 00:00:00 Completed [facility] Influenza Virus Vaccine 2020-09-28 00:00:00 Completed [facility] Influenza Virus Vaccine 2020-09-28 00:00:00 Completed [facility] Influenza Virus Vaccine Unknown Completed [facility] SARS-COV-2 COVID-19 PFIZER VACCINE Unknown Completed [facility] SARS-COV-2 COVID-19 PFIZER VACCINE Unknown Completed [facility] Fluarix Fluarix Unknown Completed [facility] Adacel (Tdap) Adacel (Tdap) Unknown Completed [facility] Fluarix Fluarix Unknown Completed [facility] Adacel (Tdap) Adacel (Tdap) Unknown Completed [facility] Fluarix Fluarix Unknown Completed [facility] Adacel (Tdap) Adacel (Tdap) Unknown Completed [facility] Fluarix Fluarix Unknown Completed [facility] Adacel (Tdap) Adacel (Tdap) Unknown Completed [facility] Fluarix Fluarix Unknown Completed [facility] Adacel (Tdap) Adacel (Tdap) Unknown Completed [facility] Fluarix Fluarix Unknown Completed [facility] Adacel (Tdap) Adacel (Tdap) Unknown Completed [facility] Fluarix (IIV4) - SDS - 0.5mL Fluarix (IIV4) - SDS - 0.5mL Unknown Completed [facility] Flucelvax (ccIIV4) - MDV - 0.5mL Flucelvax (ccIIV4) - MDV - 0.5mL Unknown Completed [facility] Adacel (Tdap) Adacel (Tdap) Unknown Completed [facility] Fluarix (IIV4) - SDS - 0.5mL Fluarix (IIV4) - SDS - 0.5mL Unknown Completed [facility] Flucelvax (ccIIV4) - MDV - 0.5mL Flucelvax (ccIIV4) - MDV - 0.5mL Unknown Completed [facility] Adacel (Tdap) Adacel (Tdap) Unknown Completed [facility] Fluarix (IIV4) - SDS - 0.5mL Fluarix (IIV4) - SDS - 0.5mL Unknown Completed [facility] Flucelvax (ccIIV4) - MDV - 0.5mL Flucelvax (ccIIV4) - MDV - 0.5mL Unknown Completed [facility] Adacel (Tdap) Adacel (Tdap) Unknown Completed [facility] Fluarix (IIV4) - SDS - 0.5mL Fluarix (IIV4) - SDS - 0.5mL Unknown Completed [facility] Flucelvax (ccIIV4) - MDV - 0.5mL Flucelvax (ccIIV4) - MDV - 0.5mL Unknown Completed [facility] Adacel (Tdap) Adacel (Tdap) Unknown Completed [facility] Fluarix (IIV4) - SDS - 0.5mL Fluarix (IIV4) - SDS - 0.5mL Unknown Completed [facility] Flucelvax (ccIIV4) - MDV - 0.5mL Flucelvax (ccIIV4) - MDV - 0.5mL Unknown Completed [facility] Adacel (Tdap) Adacel (Tdap) Unknown Completed [facility] Fluarix (IIV4) - SDS - 0.5mL Fluarix (IIV4) - SDS - 0.5mL Unknown Completed [facility] Flucelvax (ccIIV4) - MDV - 0.5mL Flucelvax (ccIIV4) - MDV - 0.5mL Unknown Completed [facility] Adacel (Tdap) Adacel (Tdap) Unknown Completed [facility] Fluarix Fluarix Unknown Completed Common [facility] Adacel (Tdap) Adacel (Tdap) Unknown Completed [facility] Fluarix Fluarix Unknown Completed Common [facility] Adacel (Tdap) Adacel (Tdap) Unknown Completed [facility] on [facility] Fluarix Fluarix Unknown Completed Common [facility] Adacel (Tdap) Adacel (Tdap) Unknown Completed Co [facility] Vital Signs Vital Name Observation Time Observation Value Comments S lilianace height 2023-11-29 14:40:00 69 [in_i] Commo n [facility] weight 2023-11-29 14:40:00 281.0 [lb_av] Co [facility] temperature 2023-11-29 14:40:00 97.7 [degF] Com [facility] bmi 2023-11-29 14:40:00 41.49 kg/m2 Comm on [facility] oximetry 2023-11-29 14:40:00 95 % Commo n [facility] respiratory rate 2023-11-29 14:40:00 16 /min [facility] blood pressure systolic 2023-11-29 14:40:00 136 mm[Hg] Common [facility] blood pressure diastolic 2023-11-29 14:40:00 71 mm[Hg] Common [facility] height 2023-10-16 15:30:00 69 [in_i] Commo n [facility] weight 2023-10-16 15:30:00 276 [lb_av] Comm on [facility] temperature 2023-10-16 15:30:00 98.0 [degF] Com mon [facility] bmi 2023-10-16 15:30:00 40.75 kg/m2 Comm on [facility] blood pressure systolic 2023-10-16 15:30:00 130 mm[Hg] Common [facility] blood pressure diastolic 2023-10-16 15:30:00 76 mm[Hg] [facility] height 2023-10-03 15:00:00 69 [in_i] Commo n [facility] weight 2023-10-03 15:00:00 276.8 [lb_av] Co mmon [facility] temperature 2023-10-03 15:00:00 97.2 [degF] Com mon [facility] bmi 2023-10-03 15:00:00 40.87 kg/m2 Comm on [facility] oximetry 2023-10-03 15:00:00 95 % Commo n [facility] respiratory rate 2023-10-03 15:00:00 16 /min Common [facility] blood pressure systolic 2023-10-03 15:00:00 132 mm[Hg] [facility] blood pressure diastolic 2023-10-03 15:00:00 67 mm[Hg] [facility] height 2023-03-22 14:40:00 69 [in_i] Commo n [facility] weight 2023-03-22 14:40:00 277.4 [lb_av] Co mmon [facility] temperature 2023-03-22 14:40:00 97.7 [degF] Com [facility] bmi 2023-03-22 14:40:00 40.96 kg/m2 Comm on [facility] oximetry 2023-03-22 14:40:00 91 % Commo n [facility] respiratory rate 2023-03-22 14:40:00 16 /min Common [facility] blood pressure systolic 2023-03-22 14:40:00 133 mm[Hg] Common [facility] blood pressure diastolic 2023-03-22 14:40:00 60 mm[Hg] Common [facility] height 2023-03-21 15:00:00 69 [in_i] Commo n [facility] weight 2023-03-21 15:00:00 270 [lb_av] Comm on [facility] temperature 2023-03-21 15:00:00 98.0 [degF] Com mon [facility] bmi 2023-03-21 15:00:00 39.87 kg/m2 Comm on [facility] blood pressure systolic 2023-03-21 15:00:00 134 mm[Hg] Common [facility] blood pressure diastolic 2023-03-21 15:00:00 84 mm[Hg] [facility] Systolic blood pressure 2023-03-01 19:04:00 125 mm[Hg] [facility] Diastolic blood pressure 2023-03-01 19:04:00 79 mm[Hg] [facility] Heart rate 2023-03-01 19:04:00 79 /min [facility] Body temperature 2023-03-01 19:04:00 36.5 Nicole [facility] Respiratory rate 2023-03-01 19:04:00 18 /min [facility] Body height 2023-03-01 19:04:00 172.7 cm [facility] Body weight 2023-03-01 19:04:00 124.013 kg [facility] BMI 2023-03-01 19:04:00 41.57 kg/m2 [facility] height 2022-12-21 16:00:00 69 [in_i] Commo n [facility] weight 2022-12-21 16:00:00 282.6 [lb_av] Co [facility] temperature 2022-12-21 16:00:00 97.2 [degF] Com mon [facility] bmi 2022-12-21 16:00:00 41.73 kg/m2 Comm on [facility] oximetry 2022-12-21 16:00:00 95 % Commo n [facility] respiratory rate 2022-12-21 16:00:00 15 /min [facility] blood pressure systolic 2022-12-21 16:00:00 101 mm[Hg] [facility] blood pressure diastolic 2022-12-21 16:00:00 61 mm[Hg] [facility] Procedures Procedure Date / Time Performed Performing Clinician Source AUTHORIZATION FOR RELEASE OF PHI 2023-11-02 06:01:00 Doctor Unassigned, [place] [facility] ASSIGNMENT OF BENEFITS 2020-10-28 19:33:49 Docto r Unassigned, [place] [facility] Encounters Start Date/Time End Date/Time Encounter Type Admission Type Attending [facility] Care Facility Care Department Encounter ID Source 2023-11-27 08:45:01 Outpatient [place]ossom andino STLMLC STLMLC [id number] [facility] 2023-10-11 10:37:01 Outpatient [place]om andino STLMLC STLMLC [id number] [facility] 2023-03-22 14:42:01 Outpatient Blossom Pastro STLMLC STLMLC [id number] [facility] 2023-01-19 10:30:03 Outpatient [place] andino STLMLC STLMLC [id number] [facility] 2022-12-21 15:48:02 Outpatient [place] andino STLMLC STLMLC [id number] [facility] 2023-12-26 00:00:00 2023-12-26 00:00:00 (TEL) STLMLC STLMLC [id number] [facility] 2023-11-29 00:00:00 2023-11-29 00:00:00 OFFICE VISIT ESTAB PT LEVEL 4 STLMLC STLMLC [id number] [facility] 2023-11-02 00:00:00 2023-11-02 00:00:00 Orders Only Doctor Unassigned, [place] [facility] [id number] 350.1.13.10 4.2.7.2.686 [id number] [facility] 2023-10-16 00:00:00 2023-10-16 00:00:00 OFFICE VISIT ESTAB PT LEVEL 4 STLMLC STLMLC [id number] [facility] 2023-10-13 00:00:00 2023-10-13 00:00:00 (TEL) STLMLC STLMLC [id number] [facility] 2023-10-13 00:00:00 2023-10-13 00:00:00 (TEL) STLMLC STLMLC [id number] [facility] 2023-10-03 00:00:00 2023-10-03 00:00:00 OFFICE VISIT ESTAB PT LEVEL 4 STLMLC STLMLC [id number] [facility] 2023-05-22 09:02:57 2023-05-22 23:59:00 Outpatient R WENDIE BRONSON [facility] [id number] [facility] 2023-05-22 09:02:57 2023-05-22 23:59:00 Hospital Encounter FitoalbertWendie [facility] 1.2.840.114 350.1.13.10 4.2.7.2.686 [id number] [facility] 2023-03-23 00:00:00 2023-03-23 00:00:00 (TEL) STLMLC STLMLC [id number] [facility] 2023-03-22 00:00:00 2023-03-22 00:00:00 OFFICE VISIT ESTAB PT LEVEL 4 STLMLC STLMLC [id number] [facility] 2023-03-21 00:00:00 2023-03-21 00:00:00 OFFICE VISIT ESTAB PT LEVEL 4 STLMLC STLMLC [id number] [facility] 2023-03-01 13:30:00 2023-03-01 14:41:15 Outpatient R FITOWENDIE WINN [facility] [id number] [facility] 2023-03-01 13:30:00 2023-03-01 14:41:15 Office Visit Wendie Bronson [facility] 1..840.114 350.1.13.10 4.2.7.2.686 [id number] [facility] 2023-03-01 00:00:00 2023-03-01 00:00:00 Telephone [facility] 1.2.840.114 350.1.13.10 4.2.7.2.686 [id number] [facility] 2023-01-23 00:00:00 2023-01-23 00:00:00 (TEL) STLMLC STLMLC [id number] [facility] 2023-01-20 00:00:00 2023-01-20 00:00:00 (TEL) STLMLC STLMLC [id number] [facility] 2023-01-03 00:00:00 2023-01-03 00:00:00 (TEL) STLMLC STLMLC [id number] [facility] 2023-01-02 00:00:00 2023-01-02 00:00:00 (TEL) STLMLC STLMLC [id number] [facility] 2022-12-23 00:00:00 2022-12-23 00:00:00 (TEL) STLMLC STLMLC [id number] [facility] 2022-12-21 00:00:00 2022-12-21 00:00:00 OFFICE VISIT ESTAB PT LEVEL 4 STLMLC STLMLC [id number] [facility] 2021-10-28 09:00:00 2021-10-28 09:00:00 Outpatient FAIZA SYKES [facility] [id number] [facility] 2020-12-13 12:30:00 2020-12-13 12:30:00 Outpatient Husam LEONIDAS GARIBAY [facility] [id number] [facility] 2020-11-22 10:30:00 2020-11-22 10:30:00 Outpatient BARRINGTON GOLDBERG [facility] [id number] [facility] 2020-11-19 00:00:00 2020-11-19 00:00:00 Patient Outreach Barrington Ceron [facility] 1.2.840.114 350.1.13.10 4.2.7.2.686 [id number] [facility] 2020-11-11 15:50:00 2020-11-11 15:50:00 Outpatient LEONIDAS JACKMAN [facility] [id number] [facility] 2020-11-06 00:00:00 2020-11-06 00:00:00 [facility] 1.2.840.114 350.1.13.10 4.2.7.2.686 [id number] [facility] 2020-11-03 14:19:55 2020-11-03 23:59:00 Hospital Encounter Faiza Singer [facility] 1.2.840.114 350.1.13.10 4.2.7.2.686 [id number] [facility] 2020-11-03 00:00:00 2020-11-03 00:00:00 Outpatient FAIZA SYKES [facility] [id number] [facility] 2020-10-28 13:30:00 2020-10-28 13:30:00 Outpatient FAIZA SYKES [facility] [id number] [facility] 2020-10-28 00:00:2020-10-28 00:00:00 Orders Only Doctor Unassigned, [place] [facility] 1.2.840.114 350.1.13.10 4.2.7.2.686 [id number] [facility] Results Test Description Test Time Test Comments Results Result Co mments Source HEMOGLOBIN [id number] 00:00:00* Test Item Value Reference Range Interpretation Comme nts HEMOGLOBIN A1c (test code = 4548-4) 6.0 % See_Comment H [Automated messa ge] The system which generated this result transmitted reference range: 4.2-5.6 %. The reference range was not used to interpret this result as normal/abnormal. LIPID [id number] 00:00:00* Test Item Value Reference Range Interpretation Comme nts CALC LDL CHOL (test code = 00580-8) 109 MG/DL See_Comment H [Automated messa ge] The system which generated this result transmitted reference range: <100 MG/DL. The reference range was not used to interpret this result as normal/abnormal. CHOLESTEROL (test code = 2093-3) 211 MG/DL See_Comment H [Automated messa ge] The system which generated this result transmitted reference range: <200 MG/DL. The reference range was not used to interpret this result as normal/abnormal. HDL CHOLESTEROL (test code = 2085-9) 89 MG/DL See_Comment [Automated messa ge] The system which generated this result transmitted reference range: >39 MG/DL. The reference range was not used to interpret this result as normal/abnormal. RISK RATIO LDL/HDL (test code = 81147-0) 1.22 RATIO See_Comment [Automated message] The system which generated this result transmitted reference range: <3.22 RATIO. The reference range was not used to interpret this result as normal/abnormal. TRIGLYCERIDES (test code = 2571-8) 50 MG/DL See_Comment [Automated messa ge] The system which generated this result transmitted reference range: <150 MG/DL. The reference range was not used to interpret this result as normal/abnormal. COMPREHENSIVE METABOLIC [id number] 00:00:00* Test Item Value Reference Range Interpretation Comme nts ALBUMIN (test code = 1751-7) 3.9 G/DL See_Comment [Automated messa ge] The system which generated this result transmitted reference range: 3.5-5.2 G/DL. The reference range was not used to interpret this result as normal/abnormal. ALKALINE PHOSPHATASE (test code = 6768-6) 73 U/L See_Comment [Automated message] The system which generated this result transmitted reference range: 40-140 U/L. The reference range was not used to interpret this result as normal/abnormal. BILIRUBIN, TOTAL (test code = 1975-2) 0.3 MG/DL See_Comment [Automated message] The system which generated this result transmitted reference range: <=1.2 MG/DL. The reference range was not used to interpret this result as normal/abnormal. BUN (test code = 3094-0) 18 MG/DL See_Comment [Automated messa ge] The system which generated this result transmitted reference range: 8-23 MG/DL. The reference range was not used to interpret this result as normal/abnormal. CALCIUM (test code = 17140-7) 9.6 MG/DL See_Comment [Automated messa ge] The system which generated this result transmitted reference range: 8.5-10.5 MG/DL. The reference range was not used to interpret this result as normal/abnormal. CALC A/G RATIO (test code = 1759-0) 1.8 RATIO See_Comment [Automated messa ge] The system which generated this result transmitted reference range: 1.0-2.6 RATIO. The reference range was not used to interpret this result as normal/abnormal. CALC BUN/CREAT (test code = 3097-3) 20 RATIO See_Comment [Automated messa ge] The system which generated this result transmitted reference range: 6-28 RATIO. The reference range was not used to interpret this result as normal/abnormal. CALC GLOBULIN (test code = 73980-8) 2.2 G/DL See_Comment [Automated messa ge] The system which generated this result transmitted reference range: 1.9-3.7 G/DL. The reference range was not used to interpret this result as normal/abnormal. CARBON DIOXIDE (test code = 1963-8) 31 MEQ/L See_Comment [Automated messa ge] The system which generated this result transmitted reference range: 19-31 MEQ/L. The reference range was not used to interpret this result as normal/abnormal. CHLORIDE (test code = 2075-0) 101 MEQ/L See_Comment [Automated messa ge] The system which generated this result transmitted reference range: 95-107 MEQ/L. The reference range was not used to interpret this result as normal/abnormal. CREATININE (test code = 2160-0) 0.92 MG/DL See_Comment [Automated messa ge] The system which generated this result transmitted reference range: 0.60-1.30 MG/DL. The reference range was not used to interpret this result as normal/abnormal. eGFR (2020 CKD-EPI) (test code = 25903-8) 69 ML/MIN/1.73 See_Comment [Automated messa ge] The system which generated this result transmitted reference range: >60 ML/MIN/1.73. The reference range was not used to interpret this result as normal/abnormal. GLUCOSE (test code = 1558-6) 101 MG/DL See_Comment H [Automated messa ge] The system which generated this result transmitted reference range: 70-99 MG/DL. The reference range was not used to interpret this result as normal/abnormal. POTASSIUM (test code = 2823-3) 4.8 MEQ/L See_Comment [Automated messa ge] The system which generated this result transmitted reference range: 3.5-5.4 MEQ/L. The reference range was not used to interpret this result as normal/abnormal. PROTEIN, TOTAL (test code = 2885-2) 6.1 G/DL See_Comment [Automated messa ge] The system which generated this result transmitted reference range: 6.1-8.3 G/DL. The reference range was not used to interpret this result as normal/abnormal. AST (test code = 1920-8) 13 U/L See_Comment [Automated messa ge] The system which generated this result transmitted reference range: 9-40 U/L. The reference range was not used to interpret this result as normal/abnormal. ALT (test code = 1742-6) 13 U/L See_Comment [Automated messa ge] The system which generated this result transmitted reference range: 5-40 U/L. The reference range was not used to interpret this result as normal/abnormal. SODIUM (test code = 2951-2) 142 MEQ/L See_Comment [Automated messa ge] The system which generated this result transmitted reference range: 133-146 MEQ/L. The reference range was not used to interpret this result as normal/abnormal.
[2023-12-31 18:35] LABS: Absolute Basophils 0.1 K/uL (0-0.5); Absolute Eosinophils 0.3 K/uL (0-0.5); Absolute Lymphocytes (CBC) 1.6 K/uL (0.7-4.9); Basophils % 0.7 % (0-1.3); Eosinophils % 3.7 % (0-4.4); Hematocrit 39.3 % (36.0-45.0); Hemoglobin 13.7 g/dL (12.0-15.0); Lymphocytes % 17.6 % (15.3-44.8); MCV 89.7 fL (80-100); MPV 7.1 fL (7.6-11.3); Platelets 246 thou/uL (152-406); RBC Red Blood Cell Count 4.38 M/uL (3.86-4.86)
[2023-12-31 18:36] LABS: Protime INR 1.07
--- NOTE | 2023-12-31 18:52 | RAD REPORT ---
EXAM DESCRIPTION: RAD - Chest Single View - 12/31/2023 6:38 pm CLINICAL HISTORY: left leg swelling COMPARISON: CHEST PA AND LAT 2 VIEW dated 05/11/2009; CHEST PA AND LAT 2 VIEW dated 03/17/2003 FINDINGS: Lines: None. Lungs: No evidence of edema or pneumonia. Pleural: No significant pleural effusions or pneumothorax. Cardiac: The heart size is within normal limits. Mediastinum: Within normal limits. Bones: No acute fractures. Other: None IMPRESSION: No acute cardiopulmonary disease.
[2023-12-31 18:55] LABS: Albumin 3.3 g/dL (3.4-5.0); Albumin/Globulin Ratio 0.9 (1.1-1.8); Bilirubin Direct 0.1 mg/dL (0-0.2); Bilirubin Indirect, Calculated 0.3 mg/dL (0.2-0.8); Bilirubin Total 0.4 mg/dL (0.2-1.0); Globulin 3.7 g/dL (2.3-3.5); Magnesium 2.3 mg/dL (1.6-2.4)
--- NOTE | 2023-12-31 19:31 | RAD REPORT ---
EXAM DESCRIPTION: US - Extremity Venous Uni Ltd - 12/31/2023 7:20 pm CLINICAL HISTORY: Swelling COMPARISON: None. TECHNIQUE: Real-time sonographic evaluation of the left lower extremity deep venous system was perfo rmed. FINDINGS: Color Doppler, grayscale, and spectral analysis was performed. Clot present in the left femoral vein distally, popliteal vein, and posterior tibial vein as evidence d by incomplete compressibility and with clot visualized on color Doppler and grayscale. No clot iden tified in the greater saphenous vein. 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 Conveyed to Juliano Ross by Dr. Clemons at 1926 on 12/31/23
--- NOTE | 2023-12-31 19:52 | RAD REPORT ---
EXAM DESCRIPTION: CTAngio Aorta For Dissection - 12/31/2023 7:40 pm CLINICAL HISTORY: shortness of breath, left leg swelling COMPARISON: No comparisons TECHNIQUE: CTA of the chest, abdomen, and pelvis was performed with IV contrast. 3D maximum intensit y pixel (MIP) reconstructions were created of the aorta . All CT scans are performed using dose optimization technique as appropriate and may include automated exposure control or mA/KV adjustment according to patient size. FINDINGS: Thorax: Chest Wall: No abnormal mass Lungs: No acute abnormality. Pleura: No effusions or pneumothorax. Soo/Mediastinum: No lymphadenopathy. Small to moderate hiatal hernia. Thickened distal esophagus whi ch may reflect esophagitis. Aorta/Pulmonary Arteries: No aortic aneurysm or dissection. Pulmonary emboli are present bilaterally. The overall clot burden is moderate. There is thrombus in the distal pulmonary arteries bilaterally as well as both lower lobar arteries extending into the segmentals. Segmental PE present in the right upper lobe. Heart: Normal size. Abdomen/Pelvis: Liver: No acute abnormality or suspicious lesions. Biliary: No biliary ductal dilatation. Stomach: No significant focal abnormality. Duodenum: No significant focal abnormality. Pancreas: No significant abnormality. Spleen: No significant abnormality. Adrenal: No suspicious lesions. Kidney/ureter: No hydronephrosis. 4 mm stone in left kidney. Left renal sinus cysts. Retroperitoneum: No retroperitoneal adenopathy. Vascular: No aneurysm. Bowel: No significant focal abnormality. Peritoneum: No ascites or free air. Bladder: Grossly unremarkable. Reproductive: No masses. Bones: No acute fracture. Other: n/a IMPRESSION: 1. No aortic aneurysm or dissection. Pulmonary emboli are present, however. The clot bur den is moderate but no other complicating features. Regarding presence of pulmonary emboli, conveyed to Juliano Ross by Dr. Clemons at 1948 on 12/31/23. 2. No acute findings within the abdomen or pelvis.
[2023-12-31] MEDS ORDERED: ONDANSETRON 4 MG/2 ML VIAL IV PRN (20:15)
[2023-12-31] MEDS ORDERED: ACETAMINOPHEN 325 MG TABLET PO PRN (20:15)
[2023-12-31] MEDS ORDERED: ENOXAPARIN 80 MG/0.8 ML SQ ONE (20:19)
--- NOTE | 2023-12-31 20:19 | P.HP ---
Certification for Inpatient Patient admitted to: Observation With expected LOS: <2 Midnights Practitioner: I am a practitioner with admitting privileges, knowledge of patient current condition, hospital course, and medical plan of care. Services: Services provided to patient in accordance with Admission requirements found in Title 42 Section 412.3 of the Code of Federal Regulations Patient History Date of Service: 01/01/24 Reason for admission: DVT of the left lower extremity, acute pulmonary embolism bilaterally. History of Present Illness: 63-year-old female patient who has morbid obesity and will presented with left lower extremity pain and swelling. She was found to have acute pulmonary embolism on both lungs and also extensive DVT of the left lower extremity. She denies extensive history of trauma, immobility, sedentary lifestyle prior to onset of leg pain. She reported also that her mother had a history of DVT but that was after uterine surgery. She was evaluated by ER physician and found to have above abnormalities and she was admitted for inpatient care and anticoagulation therapy was started. Allergies amoxicillin [From Augmentin] Allergy (Verified 12/31/23 21:02) Hives/Rash clavulanic acid [From Augmentin] Allergy (Verified 12/31/23 21:02) Hives/Rash Home Medications: Amitriptyline [Elavil*] 25 mg PO BEDTIME 12/31/23 Chlorthalidone 25 mg PO DAILY 12/31/23 Escitalopram Oxalate [Lexapro] 5 mg PO DAILY 12/31/23 Review of Systems General: Unremarkable Eyes: Unremarkable ENT: Unremarkable Respiratory: Unremarkable Cardiovascular: Unremarkable Gastrointestinal: Unremarkable Genitourinary: Unremarkable Musculoskeletal: Leg Pain Integumentary: Unremarkable Neurological: Unremarkable Lymphatics: Unremarkable Physical Examination - Physical Exam General: Alert, Oriented x3 HEENT: Atraumatic Neck: Supple Respiratory: Normal air movement Cardiovascular: Regular rate/rhythm, Normal S1 S2 Gastrointestinal: Soft and benign Musculoskeletal: Swelling, Tenderness Neurological: Normal speech, Normal strength at 5/5 x4 extr - Studies Laboratory Data (last 24 hrs) 12/31/23 12/31/23 12/31/23 18:17 18:17 18:17 WBC 9.30 Hgb 13.7 Hct 39.3 Plt Count 246 PT 11.7 INR 1.07 Sodium 138 Potassium 3.0 L BUN 19 H Creatinine 1.00 Glucose 142 H Magnesium 2.3 Total Bilirubin 0.4 AST 10 L ALT 16 Alkaline Phosphatase 81 Assessment and Plan - Plan Acute DVT/pulmonary embolism: Etiology yet to be fully determined. Anticoagulation with full dose Lovenox started. Pulmonary physician consulted for PE management. Will follow clinical symptomatology closely. For now she will be on bedrest. Will continue as needed pain control with Bernard. Morbid obesity: We will continue to encourage weight loss. Prophylaxis: Lovenox for DVT treatment and PE management. CODE STATUS: Full code. Disposition: Will have patient evaluated by pulmonary physician and she will be discharged when plan of care is finalized. - Advance Directives Does patient have a Living Will: No Does patient have a Durable POA for Healthcare: No
[2023-12-31] MEDS ORDERED: ENOXAPARIN 40 MG/0.4 ML SQ ONE (20:20)
--- NOTE | 2023-12-31 20:21 | EDPHYS ---
Physician Documentation [facility] Name: Lali Burrell Age: 63 yrs Sex: Female : 1960 Arrival Date: 12/31/2023 Time: 17:31 Bed 2 Private MD: ED Physician Cameron Landis HPI: 12/30 18:20 This 63 yrs old Female presents to ER via Ambulatory with complaints of Leg Swelling - cp left. 18:20 The patient presents with pain, that is acute, swelling, tenderness. The complaints cp affect the left lower leg. Context: resulted from an unknown cause, the patient can fully bear weight, the patient is able to ambulate, with moderate difficulty, Problem is a result from a previous injury: No. 18:20 Onset: The symptoms/episode began/occurred 2 day(s) ago. cp 18:20 Associated signs and symptoms: Pertinent positives: calf tenderness, warmth, shortness cp of breath, Pertinent negatives fever. Treatment prior to arrival includes: no previous treatment. Historical: - Allergies: 18:04 Augmentin; mb9 - Home Meds: 18:04 amitriptyline 25 mg Oral tablet [Active]; chlorthalidone 25 mg Oral tablet [Active]; mb9 - PMHx: 18:04 Headache; mb9 - PSHx: 18:04 None; mb9 - Immunization history:: Adult Immunizations up to date. - Social history:: Smoking status: Patient denies any tobacco usage or history of. ROS: 18:25 Eyes: Negative for injury, pain, redness, and discharge, cp 18:25 Constitutional: Negative for body aches, chills, fever, poor PO intake, 18:25 Cardiovascular: Negative for chest pain, palpitations, 18:25 Respiratory: Positive for shortness of breath, Negative for cough, wheezing, 18:25 MS/extremity: Positive for erythema, pain, swelling, tenderness, of the left lower leg, Negative for injury or acute deformity, decreased range of motion, 18:25 Neuro: Negative for altered mental status, dizziness, headache, syncope, near syncope, weakness, 18:25 All other systems are negative, Exam: 18:30 Constitutional: The patient appears in no acute distress, alert, awake, cp non-diaphoretic, non-toxic, well developed, well nourished, obese, 18:30 Head/Face: Normocephalic, atraumatic. cp 18:30 Eyes: Periorbital structures: appear normal, Conjunctiva: normal, no exudate, no injection, Sclera: no appreciated abnormality, Lids and lashes: appear normal, bilaterally, 18:30 ENT: External ear(s): are unremarkable, Nose: is normal, Mouth: Lips: moist, Oral mucosa: pink and intact, moist, Posterior pharynx: Airway: no evidence of obstruction, patent, 18:30 Chest/axilla: Inspection: normal, 18:30 Cardiovascular: Rate: normal, Rhythm: regular, JVD: is not appreciated, 18:30 Respiratory: the patient does not display signs of respiratory distress, Respirations: normal, no use of accessory muscles, no retractions, labored breathing, is not present, Breath sounds: are clear throughout, no decreased breath sounds, no stridor, no wheezing, 18:30 Abdomen/GI: Exam negative for discomfort, distension, guarding, Inspection: abdomen appears normal, 18:30 Back: pain, is absent, ROM is normal, 18:30 Musculoskeletal/extremity: Pulses: noted to be 2+ in the right dorsalis pedis artery and left dorsalis pedis artery, DVT Exam: pain, swelling, that is moderate, of the left leg, tenderness, that is moderate, of the left leg, positive Homans' sign noted on exam, erythema, that is mild, of the left leg, increased warmth, that is mild, of the left leg, 18:30 Neuro: Orientation: to person, place \T\ time. Mentation: is normal, Motor: moves all fours, strength is normal, Sensation: is normal, Vital Signs: 18:03 BP 138 / 69; Pulse 85; Resp 18; Temp 98; Pulse Ox 100% on R/A; Weight 127.01 kg; Height mb9 5 ft. 8 in. ; Pain 6/10; 18:51 BP 111 / 70; Pulse 79; Resp 18; Pulse Ox 100% on R/A; mb9 20:36 BP 114 / 50; Pulse 78; Resp 16; Pulse Ox 99% on R/A; jb4 18:03 Body Mass Index 42.57 (127.01 kg, 172.72 cm) mb9 18:03 Pain Scale: Adult mb9 MDM: 17:57 Patient medically screened. cp 18:30 Differential diagnosis: cellulitis, PE, DVT, dependent edema. cp 20:00 Data reviewed: vital signs, nurses notes, lab test result(s), EKG, radiologic studies, cp CT scan, plain films, ultrasound. 20:10 Consideration of Admission/Observation Patient was admitted/placed on observation. I cp considered the following discharge prescriptions or medication management in the emergency department Medications were administered in the Emergency Department. See DEC. 20:10 Management of patient was discussed with the following: Hospitalist: DR Jauregui will cp admit after discussion. Independent interpretation of the following test(s) in the Emergency Department EKG: See my EKG interpretation above. Counseling: I had a detailed discussion with the patient and/or guardian regarding the historical points, exam findings, and any diagnostic results supporting the discharge/admit diagnosis, lab results, radiology results, the need for further work-up and treatment in the hospital. 12/30 18:14 Order name: Basic Metabolic Panel; Complete Time: 19:05 cp 12/30 19:05 Interpretation: Normal except: K 3.0; GLUC 142; BUN 19; GFR 63. cp 12/30 18:14 Order name: CBC with Diff; Complete Time: 19:05 cp 12/30 18:14 Order name: LFT's; Complete Time: 19:05 cp 12/30 18:14 Order name: Magnesium; Complete Time: 19:05 cp 12/30 18:14 Order name: NT PRO-BNP; Complete Time: 19:05 cp 12/30 18:14 Order name: PT-INR; Complete Time: 19:05 cp 12/30 18:14 Order name: Troponin HS; Complete Time: 19:05 cp 12/30 20:21 Order name: CBC with Automated Diff EDMS 12/30 20:21 Order name: Basic Metabolic Panel EDMS 12/30 20:21 Order name: Basic Metabolic Panel EDMS 12/30 20:21 Order name: Basic Metabolic Panel EDMS 12/30 20:21 Order name: Basic Metabolic Panel EDMS 12/30 20:21 Order name: CBC with Automated Diff EDMS 12/30 20:21 Order name: CBC with Automated Diff EDMS 12/30 20:21 Order name: CBC with Automated Diff EDMS 12/30 20:21 Order name: CBC with Automated Diff EDMS 12/30 18:14 Order name: XRAY Chest (1 view); Complete Time: 19:05 cp 12/30 18:14 Order name: US Extremity Venous Unilateral Ltd; Complete Time: 19:53 cp 12/30 19:06 Order name: CT Aorta for Dissection; Complete Time: 19:53 cp 12/30 18:14 Order name: EKG; Complete Time: 18:14 cp 12/30 20:21 Order name: CONS Physician Consult EDCO 12/30 18:14 Order name: Cardiac monitoring; Complete Time: 18:20 cp 12/30 18:14 Order name: EKG - Nurse/Tech; Complete Time: 18:20 cp 12/30 18:14 Order name: IV Saline Lock; Complete Time: 18:20 cp 12/30 18:14 Order name: Labs collected and sent; Complete Time: 18:20 cp 12/30 18:14 Order name: O2 Per Protocol; Complete Time: 18:20 cp 12/30 18:14 Order name: O2 Sat Monitoring; Complete Time: 18:20 cp Administered Medications: 20:32 Drug: Enoxaparin Sub-Q 1 mg/kg Sub-Q once Route: Sub-Q; Site: right lower abdomen; jb4 Disposition Summary: 12/31/23 20:20 Hospitalization Ordered Notes: Hospitalization Status: Inpatient Admission cp Provider: Kevon Jauregui cp Location: Telemetry/MedSurg (Inpatient) cp Condition: Stable cp Problem: new cp Symptoms: have improved cp Bed/Room Type: Standard Room Assignment: 423(12/31/23 20:29) Diagnosis - Acute embolism and thrombosis of unspecified deep veins of left lower extremity cp - Pulmonary embolism without acute cor pulmonale - bilateral(12/31/23 20:21) cp Forms: - Medication Reconciliation Form cp - SBAR form cp - Leadership Thank You Letter cp Addendum: 01/09/2024 09:12 Co-signature as Attending Physician, Cameron Landis MD I reviewed the patient's care r t provided by the Advanced Practice Provider and agree with the diagnosis and treatment plan. Signatures: Dispatcher [employer] EDCO Ángel Ross PA PA cp Garcia, Cindy, RN RN cg Indra Wayne RN RN jb4 Nancy Oleary RN RN mb9 Cameron Landis MD MD rt Corrections: (The following items were deleted from the chart) 12/30 20:21 20:20 Pulmonary embolism without acute cor pulmonale cp cp 20:29 20:20 cp cg
--- NOTE | 2023-12-31 20:21 | ER ---
Nurse's Notes [facility] [place], [place] Name: Lali Burrell Age: 63 yrs Sex: Female : 1960 Arrival Date: 12/31/2023 Time: 17:31 Bed 2 Private MD: Diagnosis: Acute embolism and thrombosis of unspecified deep veins of left lower extremity;Pulmonary embolism without acute cor pulmonale-bilateral Presentation: 12/30 18:03 Chief complaint: Patient states: "I've had pain and swelling in my left lower leg since mb9 Monday. I'm worried I may have a clot. I'm a little SOB." Pt denies CP. Coronavirus screen: Vaccine status: Patient reports receiving the 2nd dose of the covid vaccine. Ebola Screen: No symptoms or risks identified at this time. Initial Sepsis Screen: Does the patient meet any 2 criteria? No. Patient's initial sepsis screen is negative. Does the patient have a suspected source of infection? No. Patient's initial sepsis screen is negative. Risk Assessment: Do you want to hurt yourself or someone else? Patient reports no desire to harm self or others. Onset of symptoms was December 31, 2023. 18:03 Method Of Arrival: Ambulatory mb9 18:03 Acuity: ARCHIE 3 mb9 Triage Assessment: 18:05 General: Appears in no apparent distress. Behavior is calm, cooperative. Pain: mb9 Complains of pain in left leg Pain does not radiate. Pain currently is 6 out of 10 on a pain scale. Quality of pain is described as throbbing, Pain began 2-3 days ago. Neuro: De [place] Cruz Agitation-Sedation Scale (RASS): 0 - Alert and Calm Level of Consciousness is awake, alert, obeys commands, Oriented to person, place, time, situation, Appropriate for age. Cardiovascular: Heart tones S1 S2 present Patient's skin is warm and dry. Pulses are 1+ in left dorsalis pedis artery. Respiratory: Reports shortness of breath Airway is patent Respiratory effort is even, unlabored, Respiratory pattern is regular, symmetrical. GI: Abdomen is round non-distended, Bowel sounds present X 4 quads. Abd is soft and non tender X 4 quads. : No signs and/or symptoms were reported regarding the genitourinary system. Derm: Skin is pink, warm \\T\\ dry. Musculoskeletal: Swelling present in left leg. Historical: - Allergies: 18:04 Augmentin; mb9 - Home Meds: 18:04 amitriptyline 25 mg Oral tablet [Active]; chlorthalidone 25 mg Oral tablet [Active]; mb9 - PMHx: 18:04 Headache; mb9 - PSHx: 18:04 None; mb9 - Immunization history:: Adult Immunizations up to date. - Social history:: Smoking status: Patient denies any tobacco usage or history of. Screenin:[address] [facility] ED Fall Risk Assessment (Adult) History of falling in the last 3 months, mb9 including since admission No falls in past 3 months (0 pts) Confusion or Disorientation No (0 pts) Intoxicated or Sedated No (0 pts) Impaired Gait No (0 pts) Mobility Assist Device Used No (0 pt) Altered Elimination No (0 pt) Score/Fall Risk Level 0 - 2 = Low Risk Oriented to surroundings, Maintained a safe environment, Educated pt \\T\\ family on fall prevention, incl call for assistance when getting out of bed. Abuse screen: Denies threats or abuse. Nutritional screening: No deficits noted. Tuberculosis screening: No symptoms or risk factors identified. Assessment: 18:07 Reassessment: see triage assessment. mb9 20:36 Reassessment: Patient appears in no apparent distress at this time. Patient and/or jb4 family updated on plan of care and expected duration. Pain level reassessed. Patient is alert, oriented x 3, equal unlabored respirations, skin warm/dry/pink. Vital Signs: 18:03 BP 138 / 69; Pulse 85; Resp 18; Temp 98; Pulse Ox 100% on R/A; Weight 127.01 kg; Height mb9 5 ft. 8 in. ; Pain 6/10; 18:51 BP 111 / 70; Pulse 79; Resp 18; Pulse Ox 100% on R/A; mb9 20:36 BP 114 / 50; Pulse 78; Resp 16; Pulse Ox 99% on R/A; jb4 18:03 Body Mass Index 42.57 (127.01 kg, 172.72 cm) mb9 18:03 Pain Scale: Adult mb9 ED Course: 17:35 Patient arrived in ED. im 17:42 Ángel Ross PA is PHCP. cp 17:42 Cameron Landis MD is Attending Physician. cp 18:03 Nancy Oleary, RN is Primary Nurse. mb9 18:03 Arm band placed on. mb9 18:04 Triage completed. mb9 18:07 Placed in gown. Bed in low position. Call light in reach. Side rails up X 1. Client mb9 placed on continuous cardiac and pulse oximetry monitoring. NIBP monitoring applied. air sampling and monitoring on. Door closed. Noise minimized. Warm blanket given. 18:20 Basic Metabolic Panel Sent. mb9 18:20 CBC with Diff Sent. mb9 18:20 LFT's Sent. mb9 18:20 Magnesium Sent. mb9 18:20 NT PRO-BNP Sent. mb9 18:20 PT-INR Sent. mb9 18:20 Troponin HS Sent. mb9 18:20 EKG done, by ED staff, reviewed by Ángel GARCIA. Inserted saline lock: 20 gauge in mb9 left forearm, using aseptic technique. 18:20 No provider procedures requiring assistance completed. mb9 18:40 XRAY Chest (1 view) In Process Unspecified. EDMS 19:00 Report given to Estevan RN. mb9 19:22 US Extremity Venous Unilateral Ltd In Process Unspecified. EDMS 19:42 CT Aorta for Dissection In Process Unspecified. EDMS 20:18 Kevon Jauregui MD is Hospitalizing Provider. cp 20:49 Patient admitted, IV remains in place. jb4 Administered Medications: 20:32 Drug: Enoxaparin Sub-Q 1 mg/kg Sub-Q once Route: Sub-Q; Site: right lower abdomen; jb4 Medication: 18:08 VIS not applicable for this client. mb9 Outcome: 20:20 Decision to Hospitalize by Provider. cp 20:49 Admitted to Tele accompanied by tech, via wheelchair, room 423, with chart, jb4 20:49 Condition: stable 20:49 Discharge instructions given to patient, Instructed on the need for admit, Demonstrated understanding of instructions, 21:18 Patient left the ED. jb4 Signatures: Dispatcher [employer] EDÁngel Maldonado PA PA cp Bryson, James, RN RN jb4 Nancy Oleary, RN RN mb9 Mari Arana
[2023-12-31 21:41] VITALS: BMI 42.5
[2024-01-01] MEDS ORDERED: HYDROCODONE/APAP 7.5/325 MG TAB PO PRN (06:22)
[2024-01-01 06:36] LABS: Absolute Basophils 0.1 K/uL (0-0.5); Absolute Eosinophils 0.3 K/uL (0-0.5); Absolute Lymphocytes (CBC) 1.4 K/uL (0.7-4.9); Basophils % 0.8 % (0-1.3); Eosinophils % 4.4 % (0-4.4); Hematocrit 38.2 % (36.0-45.0); Hemoglobin 13.3 g/dL (12.0-15.0); MCV 89.4 fL (80-100); MPV 7.2 fL (7.6-11.3); Platelets 259 thou/uL (152-406); RBC Red Blood Cell Count 4.27 M/uL (3.86-4.86)
[2024-01-01 06:47] LABS: Anion Gap 9.1 mEq/L (5.0-15.0); Potassium 3.1 mEq/L (3.5-5.1)
[2024-01-01] MEDS: Enoxaparin 120 MG/0.8 ML SYR SQ SCH (07:48)
[2024-01-01] MEDS: POTASSIUM CL SA 10 MEQ TAB PO ONE ×2 (07:49→12:32)
--- NOTE | 2024-01-01 09:40 | P.PN ---
Date of Service: 01/01/24 Subjective: lower left extremity still feels hot / tight / painful but not as severe as yesterday felt slight numbness in foot, but was when had leg crossed, now hanging over side of bed very minimal / improved no prior history of blood clots; mother developed blood clot in the past after hysterectomy and few years later due to inactivity denies any trauma / past surgeries of lower left extremity does report she has been more sedentary - sleeping more after getting home breathing okay on room air at rest, but hasn't ambulated no acute events overnight ambulating ROS: 10 point ROS as noted above, otherwise negative Physical Exam: GEN: Alert, oriented, NAD HEENT: Normal conjunctiva, sclera anicteric, CV: Regular rate and rhythm, 2+ lower left extremity edema up to thigh Pulm: Nonlabored respirations on room air at rest, clear bilaterally ABD: soft, nontender, nondistended Neuro: Normal speech, normal affect Problem List: Acute DVT of left femoral, popliteal and posterior tibial veins and PE (moderate clot burden ) Depression / anxiety Morbid obesity hx achilles tendonitis Denies prior personal history of blood clots; Pts mother developed blood clot in the past after hysterectomy and few years later due to inactivity Venous u/s (12/30): positive DVT of left femoral vein, popliteal vein, and posterior tibial vein CT dissection (12/30): Positive PE with moderate clot burden. no aortic aneur ysm or dissection. 4 mm stone in left kidney. Left renal sinus cysts. CXR (12/30): negative for any acute findings Dr. 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 Fall precautions. ambulate monitor on telemetry Breathing okay on room air currently confirm home meds, restart as appropriate moderate clot burden in PE and DVT, with pain and swelling of leg; will continue to monitor through day, if stable / improves, anticipate dc in AM VTE: transition to xarelto this evening Code: Full Dispo: Home, ~1 day
--- NOTE | 2024-01-01 12:14 | P.CNS ---
Date of Consult: 01/01/24 Reason for Consult: Thromboembolism Chief Complaint: DVT of the left lower extremity, acute pulmonary embolism bilaterally. 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 and lives a relatively sedentary lifestyle there is been no history of any preceding illness travel Allergies amoxicillin [From Augmentin] Allergy (Verified 12/31/23 21:02) Hives/Rash clavulanic acid [From Augmentin] Allergy (Verified 12/31/23 21:02) Hives/Rash Home Medications: Amitriptyline [Elavil*] 25 mg PO BEDTIME 12/31/23 Chlorthalidone 25 mg PO DAILY 12/31/23 Escitalopram Oxalate [Lexapro] 5 mg PO DAILY 12/31/23 - Past Medical/Surgical History Diabetic: No -: headache -: Depression Past Surgical History: Patient denies surgical history - Social History Smoking Status: Never smoker Alcohol use: Yes CD- Drugs: No Caffeine use: Yes Place of Residence: Home Review of Systems 10-point ROS is otherwise unremarkable Physical Examination Temp Pulse Resp BP Pulse Ox 97.9 F 80 16 124/60 92 01/01/24 11:36 01/01/24 11:36 01/01/24 11:36 01/01/24 11:36 01/01/24 11:36 General: Alert, Oriented x3 HEENT: Atraumatic Neck: Supple Respiratory: Clear to auscultation bilaterally Cardiovascular: Normal S1 S2, Edema (Left leg is swollen) Gastrointestinal: Normal bowel sounds, Soft and benign, Non-distended Musculoskeletal: Other (Entire left leg is swollen) Integumentary: No rashes, No breakdown Laboratory Data (last 24 hrs) 12/31/23 12/31/23 12/31/23 18:17 18:17 18:17 WBC 9.30 Hgb 13.7 Hct 39.3 Plt Count 246 PT 11.7 INR 1.07 Sodium 138 Potassium 3.0 L BUN 19 H Creatinine 1.00 Glucose 142 H Magnesium 2.3 Total Bilirubin 0.4 AST 10 L ALT 16 Alkaline Phosphatase 81 - Problems (1) Deep vein thrombosis (DVT) with pulmonary embolism present on admission Current Visit: Yes Status: Acute Plan: Patient is 63 years of age presented with left-sided DVT pulmonary embolism rather acute no obvious precipitating factor chemistries reviewed hypokalemia avoid chlorthalidone alone start patient on Xarelto patient blood pressure is stable oxygenation satisfactory plan to ambulate discharge patient on Xarelto as per protocol patient to remain on a full therapeutic dose for 3 to 6 months then will reevaluate
[2024-01-01] MEDS: RIVAROXABAN 15 MG TABLET PO SCH (21:14)
[2024-01-01 21:48] VITALS: O2SAT 94
[2024-01-02 07:47] LABS: Absolute Basophils 0.1 K/uL (0-0.5); Absolute Eosinophils 0.3 K/uL (0-0.5); Absolute Lymphocytes (CBC) 1.1 K/uL (0.7-4.9); Basophils % 0.8 % (0-1.3); Eosinophils % 3.3 % (0-4.4); Hematocrit 39.2 % (36.0-45.0); Hemoglobin 13.6 g/dL (12.0-15.0); Lymphocytes % 13.4 % (15.3-44.8); MCV 89.4 fL (80-100); MPV 7.1 fL (7.6-11.3); Platelets 290 thou/uL (152-406); RBC Red Blood Cell Count 4.39 M/uL (3.86-4.86)
[2024-01-02 07:56] LABS: Anion Gap 9.6 mEq/L (5.0-15.0); Magnesium 2.1 mg/dL (1.6-2.4); Potassium 3.6 mEq/L (3.5-5.1)
[2024-01-02] MEDS: POTASSIUM CL SA 10 MEQ TAB PO ONE (08:48)
--- NOTE | 2024-01-02 08:55 | P.DS ---
Admission Date: 01/02/24 Discharge Date: 01/02/24 Disposition: ROUTINE DISCHARGE Discharge Condition: FAIR Reason for Admission: DVT of the left lower extremity, acute pulmonary embolism bilaterally. Brief History of Present Illness: 63-year-old female patient who has morbid obesity and will presented with left lower extremity pain and swelling. She was found to have acute pulmonary embolism on both lungs and also extensive DVT of the left lower extremity. CT dissection also showed pulmonary embolism. She denies extensive history of trauma, immobility, sedentary lifestyle prior to onset of leg pain. She reported also that her mother had a history of DVT but that was after uterine surgery. She also reported using below-knee compression stockings recently. Patient was hospitalized for further management. Hospital Course: Diagnosis Acute DVT of left femoral, popliteal and posterior tibial veins and PE (moderate clot burden ) Depression / anxiety Morbid obesity hx achilles tendonitis Hospital course Patient admitted to the medical floor and started on full dose Lovenox She was seen in consultation by pulmonary Dr. Deena Shaffer - mail sorter and delivery consulted Full dose Lovenox transition to oral Xarelto. Patient reported pain in the left leg and also noted swelling She reported some shortness of breath but no chest pain. Patient reevaluated by Dr. Umaña today and deemed stable for discharge. She is discharged with Xarelto Hypercoagulable workup obtained given family history of thromboembolism. Results to be followed as outpatient Vital Signs/Physical Exam: Temp Pulse Resp BP Pulse Ox 98.7 F 82 18 110/52 L 91 01/02/24 04:00 01/02/24 04:00 01/02/24 04:00 01/02/24 04:00 01/02/24 04:00 General: Alert, In no apparent distress, Oriented x3 HEENT: Mucous membr. moist/pink Neck: Supple, JVD not distended Respiratory: Clear to auscultation bilaterally, Normal air movement Cardiovascular: Regular rate/rhythm, Normal S1 S2, Edema (Left leg) Gastrointestinal: Normal bowel sounds, Soft and benign, Non-distended Musculoskeletal: Swelling (Left leg) Integumentary: Erythema (Mild erythema-left leg) Neurological: Normal strength at 5/5 x4 extr Laboratory Data at Discharge: WBC Cancelled 01/02/24 Unknown Hgb Cancelled 01/02/24 Unknown Hct Cancelled 01/02/24 Unknown Plt Count Cancelled 01/02/24 Unknown PT 11.7 SECONDS (9.5-12.5) 12/31/23 18:17 INR 1.07 12/31/23 18:17 Sodium 139 mEq/L (136-145) 01/02/24 06:58 Potassium 3.6 mEq/L (3.5-5.1) 01/02/24 06:58 BUN 12 mg/dL (7-18) 01/02/24 06:58 Creatinine 0.85 mg/dL (0.55-1.02) 01/02/24 06:58 Glucose 117 mg/dL (74-106) H 01/02/24 06:58 Magnesium 2.1 mg/dL (1.6-2.4) 01/02/24 06:58 Total Bilirubin 0.4 mg/dL (0.2-1.0) 12/31/23 18:17 AST 10 U/L (15-37) L 12/31/23 18:17 ALT 16 U/L (13-56) 12/31/23 18:17 Alkaline Phosphatase 81 U/L (45-117) 12/31/23 18:17 Home Medications: Amitriptyline [Elavil*] 25 mg PO BEDTIME 12/31/23 Escitalopram Oxalate [Lexapro] 5 mg PO DAILY 12/31/23 Hydrocodone 7.5/APAP 325 [[place] 7.5/325 mg*] 1 tab PO Q6H PRN #15 tab 01/02/24 Rivaroxaban [Xarelto*] 15 mg PO BID #41 tab 01/02/24 Rivaroxaban [Xarelto] 20 mg PO DAILY #30 tab 01/02/24 New Medications: Hydrocodone 7.5/APAP 325 [[place] 7.5/325 mg*] 1 tab PO Q6H PRN #15 tab PRN Reason: Pain Scale 5-7 (Moderate) Rivaroxaban [Xarelto] 20 mg PO DAILY #30 tab Rivaroxaban [Xarelto*] 15 mg PO BID #41 tab Diet: AHA Activity: Ad roger Followup: Bryan Shaffer MD [ACTIVE - CAN ADMIT] - 1-2 Weeks (call to schedule an appointment) Blossom Pastor NP [Primary Care Provider] - 1-2 Weeks (call to schedule an appointment) Time spent managing pt's care (in minutes): 33
[2024-01-02 09:32] VITALS: BP 100/51; TEMP 98.1
[2024-01-02 11:35] LABS: RPR (Rapid Plasma Reagin) NON-REACT (NON-REACT)
--- NOTE | 2024-01-02 12:20 | P.PN ---
Subjective Date of Service: 01/02/24 Chief Complaint: DVT of the left lower extremity, acute pulmonary embolism bilaterally. Subjective: Improving (Patient is improving still complaining of pain and swelling in the left leg still has some shortness of breath) Review of Systems Unremarkable Physical Examination - Vital Signs Temperature: 98.1 F Blood Pressure: 100/51 Pulse: 78 Respirations: 18 Pulse Ox (%): 94 - Physical Exam General: Alert, Oriented x3 Respiratory: Clear to auscultation bilaterally Cardiovascular: Normal S1 S2, Edema Musculoskeletal: Other (Patient has swelling of her left leg) - Studies Laboratory Data (last 24 hrs) 01/02/24 01/02/24 01/01/24 06:58 06:58 15:25 WBC 8.20 Hgb 13.6 Hct 39.2 Plt Count 290 Sodium 139 Potassium 3.6 4.1 D BUN 12 Creatinine 0.85 Glucose 117 H Magnesium 2.1 Assessment And Plan - Current Problems (Diagnosis) (1) Deep vein thrombosis (DVT) with pulmonary embolism present on admission Status: Acute Plan: Patient admitted with DVT and pulmonary embolism admission blood pressure all stable plan for discharge Xarelto 15 mg twice a day for 3 weeks then 20 mg daily and to elevate legs compression stocking on the left leg has no restrictions to avoid nonsteroidals (2) Hypokalemia Status: Acute - Plan Patient has secondary hypokalemia due to chlorthalidone advised her to stop this medication for now continue to monitor blood pressure see her in my clinic in 2 weeks
--- NOTE | 2024-01-02 17:10 | EKG ---
Test Date: 2023-12-31 Test Time: 18:05:59 Processing Archivist: ALP MEASUREMENT RESULTS: Intervals: Rate: 86 WY: 172 QRSD: 82 QT: 370 QTc: 442 [place]: P: 64 WY: 172 QRS: -6 T: 43 INTERPRETIVE STATEMENTS: Normal sinus rhythm Low voltage QRS Nonspecific T wave abnormality Abnormal ECG No previous ECG available for comparison Electronically Signed On 01-02-24 17:04:23 BEEHIVE KILN CHARCOAL BURNER by Rony Goodwin
[2024-01-04 14:57] LABS: Albumin, (SPE) 3.4 g/dL (3.8-4.8); Alpha-1-Globulins 0.4 g/dL (0.2-0.3); Alpha-2-Globulins 0.8 g/dL (0.5-0.9); Gamma Globulins 0.7 g/dL (0.8-1.7); INTERPRETATION REPORT
[2024-01-05 04:47] LABS: Phosphatidylser & Prothrom IgG <9 U (<=30); Phosphatidylser & Prothrom IgM <9 U (<=30)
[2024-01-05 05:53] LABS: Anti-Thrombin III Activity 100 % normal (80-135)
[2024-01-05 13:19] LABS: Anti-Cardiolipin IgA Antibody 2.6 APL-U/mL (<20.0); Anti-Cardiolipin IgG Antibody <2.0 GPL-U/mL (<20.0); Anti-Cardiolipin IgM Antibody 2.1 MPL-U/mL (<20.0); Beta-2-Glycoprotein I IgA <2.0 U/mL (<20.0); Beta-2-Glycoprotein I IgG <2.0 U/mL (<20.0); Beta-2-Glycoprotein I IgM 2.3 U/mL (<20.0)
[2024-01-06 12:39] LABS: Protein C Antigen 97 % normal (70-140)
[2024-01-06 13:11] LABS: C-ANCA Anti-Proteinase 3 <1.0 AI (<1.0)
[2024-01-08 19:13] LABS: Factor V (Leiden) Interp REPORT; Factor V (Leiden) Result NEGATIVE; Prothrombin Gene Analysis Test NEGATIVE
== END 2024-01-02 10:56 | disposition home or self-care (01) | DRG 299 ==
LOC: ER 17:31 → 4TH 20:15 → OBSVTOIN 01-02 08:24
PROVIDERS: ADMIT Internal Medicine Nephrology; ATTEND Internal Medicine
DX: I82.412 Acute embolism and thrombosis of left femoral vein (principal); I26.99 Other pulmonary embolism without acute cor pulmonale; Z68.41 Body mass index [BMI] 40.0-44.9, adult; I82.432 Acute embolism and thrombosis of left popliteal vein; I82.442 Acute embolism and thrombosis of left tibial vein; E66.01 Morbid (severe) obesity due to excess calories; F41.9 Anxiety disorder, unspecified; F32.A Depression, unspecified; N28.1 Cyst of kidney, acquired; E87.6 Hypokalemia; Z88.1 Allergy status to other antibiotic agents; Z88.8 Allergy status to other drugs, medicaments and biological substances; Z79.01 Long term (current) use of anticoagulants; Z79.899 Other long term (current) drug therapy
CPT/HCPCS: 36415; 71045; 71275; 74175; 80048; 80076; 81240; 81241; 82306; 83090; 83516; 83735; 83880; 84132; 84165; 84484; 85025; 85300; 85302; 85305; 85306; 85610; 86021; 86146; 86147; 86592; 93005; 93971; 96372; 99285; G0378; J1650; Q9967